=== PATIENT | female | born 1985 | race Caucasian/White ===

== ENCOUNTER 2016-09-07 10:05 | Day surgery (SDC) | payer OTHER ==
[~2016-09-07 10:05] MED LIST: CELECOXIB 100 MG CAPSULE PO ONE
[2016-09-07] MEDS ORDERED: LACTATED RINGERS 1,000 ML IV ONE (10:08)
[2016-09-07] MEDS ORDERED: LIDOCAINE 1%-EPI 1:100000 20 ML MDV SUBQ ONE ×2 (11:22)
[2016-09-07] MEDS ORDERED: PROPOFOL 200 MG/20 ML VIAL IVP ONE (11:28)
[2016-09-07] MEDS ORDERED: MIDAZOLAM 2 MG/2 ML VIAL IVP ONE (11:28)
[2016-09-07] MEDS ORDERED: ONDANSETRON 4 MG/2 ML VIAL IVP ONE (11:28)
[2016-09-07] MEDS ORDERED: LIDOCAINE-MPF 2% 5 ML VIAL IM ONE (11:28)
[2016-09-07] MEDS ORDERED: SUCCINYLCHOLINE 200 MG/10 ML VIAL IVP ONE (11:28)
[2016-09-07] MEDS ORDERED: fentaNYL 100 MCG/2 ML VIAL IVP ONE (11:28)
[2016-09-07] MEDS ORDERED: KETOROLAC 15 MG/ML VIAL ONE ×2 (12:10→12:11)
[2016-09-07] MEDS ORDERED: oxyCODONE 5 MG TABLET ONE (12:36)
== END 2016-09-07 10:06 | disposition home or self-care (01) ==
PROC: 0UB74ZZ Excision of Bilateral Fallopian Tubes, Percutaneous Endoscopic Approach (ICD-10-PCS; principal; 2016-09-07 11:15)
DX: Z30.2 Encounter for sterilization (principal); F31.9 Bipolar disorder, unspecified; E66.01 Morbid (severe) obesity due to excess calories; Z68.43 Body mass index [BMI] 50.0-59.9, adult
CPT/HCPCS: 58661; 81025; A9270; J7120

== ENCOUNTER 2017-04-03 14:19 | Outpatient (CLI) | payer OTHER | END 2017-04-03 14:20 | disposition home or self-care (01) | LOC: SC 14:19 | PROVIDERS: ATTEND Internal Medicine Pulmonary Disease | DX: R06.83 Snoring (principal); R06.81 Apnea, not elsewhere classified; G47.10 Hypersomnia, unspecified; G31.84 Mild cognitive impairment of uncertain or unknown etiology; F41.9 Anxiety disorder, unspecified; F32.9 Major depressive disorder, single episode, unspecified | CPT/HCPCS: 99203; 99212 ==

== ENCOUNTER 2017-05-11 21:58 | Outpatient (CLI) | payer OTHER | END 2017-05-11 21:59 | disposition home or self-care (01) | LOC: SC 21:58 | PROVIDERS: ATTEND Internal Medicine Pulmonary Disease | DX: G47.33 Obstructive sleep apnea (adult) (pediatric) (principal); Z68.42 Body mass index [BMI] 45.0-49.9, adult | CPT/HCPCS: 95810 ==

== ENCOUNTER 2017-06-01 11:21 | Outpatient (CLI) | payer OTHER | END 2017-06-01 11:22 | disposition home or self-care (01) | LOC: SC 11:21 | PROVIDERS: ATTEND Specialist | DX: G47.33 Obstructive sleep apnea (adult) (pediatric) (principal) | CPT/HCPCS: 99212; 99214 ==

== ENCOUNTER 2017-06-20 14:15 | Outpatient (CLI) | payer OTHER ==
[2017-06-20 12:56] LABS: BASOPHILS # (AUTO) 0.1 10^3/uL (0.0-0.1); EOSINOPHILS # (AUTO) 0.1 10^3/uL (0.0-0.7); EOSINOPHILS % (AUTO) 2.6 %; HCT - HEMATOCRIT 40.5 % (37.0-47.0); LYMPHOCYTES # (AUTO) 1.5 10^3/uL (1.5-3.5); LYMPHOCYTES % (AUTO) 26.5 %; MEAN CORPUSCULAR HEMOGLOBIN 31.3 pg (27.0-31.0); MEAN CORPUSCULAR HGB CONC 34.4 g/dL (32.0-36.0); MEAN CORPUSCULAR VOLUME 90.9 fL (81.0-99.0); MEAN PLATELET VOLUME 8.6 fL (7.9-10.8); MONOCYTES # (AUTO) 0.6 10^3/uL (0.0-1.0); MONOCYTES % (AUTO) 10.3 %; NEUTROPHILS # (AUTO) 3.3 10^3/uL (1.5-6.6); NEUTROPHILS % (AUTO) 59.6 %; RED BLOOD COUNT 4.45 10^6/uL (4.20-5.40); RED CELL DISTRIBUTION WIDTH 12.8 % (12.0-15.0); UNCORRECTED WHITE BLOOD COUNT 5.5 x10^3/uL; WHITE BLOOD COUNT 5.5 x10^3/uL (4.8-10.8)
[2017-06-20 13:20] LABS: ALBUMIN/GLOBULIN RATIO 1.6 (1.0-2.2); BILIRUBIN,TOTAL 0.6 mg/dL (0.2-1.0); BUN - BLOOD UREA NITROGEN 15 mg/dL (6-20); CALCIUM 8.5 mg/dL (8.5-10.3); CARBON DIOXIDE - CO2 27 mmol/L (21-32); CHLORIDE 105 mmol/L (101-111); CHOL/HDL RATIO 5.2 (<4.4); CHOLESTEROL 177 mg/dL; CREATININE 0.8 mg/dL (0.4-1.0); GFR - MDRD 83 (>89); GLUCOSE 96 mg/dL (70-100); HDL CHOLESTEROL 34 mg/dL; HEMOGLOBIN A1C 0.47 g/dL; LDL/HDL RATIO 3.3 (<4.4); POTASSIUM 3.9 mmol/L (3.5-5.0); SODIUM 137 mmol/L (135-145); TOTAL PROTEIN 6.6 g/dL (6.7-8.2); TRIGLYCERIDES 162 mg/dL; VLDL CHOLESTEROL 32 mg/dL
== END 2017-06-20 14:16 | disposition home or self-care (01) ==
LOC: LAB.WCP 14:15
PROVIDERS: ATTEND Family Medicine
DX: Z00.00 Encounter for general adult medical examination without abnormal findings (principal); F31.9 Bipolar disorder, unspecified; E03.9 Hypothyroidism, unspecified
CPT/HCPCS: 36415; 80053; 80061; 83036; 84443; 85025

== ENCOUNTER 2017-10-13 09:05 | Outpatient (CLI) | payer OTHER | END 2017-10-13 09:06 | disposition home or self-care (01) | LOC: LAB.WCP 09:05 | PROVIDERS: ATTEND Physician Assistant Medical | DX: R10.2 Pelvic and perineal pain (principal) | CPT/HCPCS: 87086 ==

== ENCOUNTER 2017-11-13 19:43 | Outpatient (CLI) | payer OTHER ==
--- NOTE | 2017-11-14 09:43 | Ultrasound Report ---
PELVIC ULTRASOUND: 11/13/2017 CLINICAL INDICATION: Pelvic pain. TECHNIQUE: Transabdominal pelvic ultrasound performed for global evaluation. Transvaginal pelvic ultrasound performed for detailed evaluation. Real-time scanning performed and static images obtained. FINDINGS: The uterus is anteverted, measuring 8.1 x 5.6 x 3.9 cm. Endometrium measures 3 mm. An IUD is noted in the endometrial canal. There is an anterior intramural leiomyoma measuring 2.2 x 1.9 x 1.7 cm. Right ovary measures 3.6 x 2.9 x 1.5 cm and is unremarkable. The left ovary measures 3.2 x 3.2 x 2.0 cm, and demonstrates a 1.8 cm follicle. No free fluid is present. IMPRESSION: NORMAL PELVIC ULTRASOUND. INTRAUTERINE DEVICE IN PLACE. TD: 11/14/2017 09:43 MTDD
== END 2017-11-13 19:44 | disposition home or self-care (01) ==
LOC: DI 19:43
PROVIDERS: ATTEND Physician Assistant Medical
DX: R10.2 Pelvic and perineal pain (principal); Z97.5 Presence of (intrauterine) contraceptive device
CPT/HCPCS: 76830; 76856

== ENCOUNTER → 2018-05-18 | Outpatient (CLI) | payer OTHER ==
[2018-05-18 13:11] LABS: BASOPHILS % (AUTO) 0.6 %; EOSINOPHILS # (AUTO) 0.2 10^3/uL (0.0-0.7); HGB - HEMOGLOBIN 13.8 g/dL (12.0-16.0); LYMPHOCYTES # (AUTO) 1.5 10^3/uL (1.5-3.5); LYMPHOCYTES % (AUTO) 20.5 %; MEAN CORPUSCULAR HEMOGLOBIN 31.5 pg (27.0-31.0); MEAN CORPUSCULAR HGB CONC 34.4 g/dL (32.0-36.0); MEAN CORPUSCULAR VOLUME 91.6 fL (81.0-99.0); MEAN PLATELET VOLUME 8.9 fL (7.9-10.8); MONOCYTES # (AUTO) 0.7 10^3/uL (0.0-1.0); MONOCYTES % (AUTO) 9.8 %; NEUTROPHILS % (AUTO) 67.1 %; PLT - PLATELET COUNT 200 10^3/uL (130-450); RED BLOOD COUNT 4.39 10^6/uL (4.20-5.40); WHITE BLOOD COUNT 7.4 x10^3/uL (4.8-10.8)
[2018-05-18 13:35] LABS: HB2 TOTAL 14.8 g/dL; HEMOGLOBIN A1C 0.47 g/dL; HEMOGLOBIN A1C % 5.1 % (4.6-6.2)
[2018-05-18 13:46] LABS: ALBUMIN/GLOBULIN RATIO 1.7 (1.0-2.2); ALKALINE PHOSPHATASE 46 IU/L (42-121); ALT ALANINE AMINOTRANSFERASE 30 IU/L (10-60); AST ASPARTATE AMINOTRANSFERASE 25 IU/L (10-42); BILIRUBIN,TOTAL 0.6 mg/dL (0.2-1.0); BUN - BLOOD UREA NITROGEN 10 mg/dL (6-20); CALCIUM 8.8 mg/dL (8.5-10.3); CARBON DIOXIDE - CO2 27 mmol/L (21-32); CHLORIDE 105 mmol/L (101-111); CHOL/HDL RATIO 3.9 (<4.4); CHOLESTEROL 140 mg/dL; CREATININE 0.4 mg/dL (0.4-1.0); GFR - MDRD 184 (>89); GLUCOSE 104 mg/dL (70-100); HDL CHOLESTEROL 36 mg/dL; LDL CHOLESTEROL,CALCULATED 74 mg/dL; LDL/HDL RATIO 2.1 (<4.4); SODIUM 138 mmol/L (135-145); TOTAL PROTEIN 6.4 g/dL (6.7-8.2); VLDL CHOLESTEROL 30 mg/dL
== END ==
LOC: LAB.WCP 08:00
PROVIDERS: ATTEND Family Medicine
DX: F31.9 Bipolar disorder, unspecified (principal); E66.01 Morbid (severe) obesity due to excess calories; E03.9 Hypothyroidism, unspecified; Z13.220 Encounter for screening for lipoid disorders
CPT/HCPCS: 36415; 80053; 80061; 83036; 83721; 84443; 85025

== ENCOUNTER 2018-12-27 15:40 | Outpatient (CLI) | payer OTHER ==
--- NOTE | 2018-12-27 16:11 | XRAY Report ---
Reason: COUGH Procedure Date: 12/27/2018 Accession Number: [id number] / [id number] Procedure: WCP - Chest 2 View X-Ray CPT Code: 01895 FULL RESULT: EXAM: CHEST RADIOGRAPHY EXAM DATE: 12/27/2018 03:53 PM. CLINICAL HISTORY: COUGH. COMPARISON: CHEST 2 VIEW PA/LAT 12/30/2015 2:05 PM. TECHNIQUE: 2 views. FINDINGS: Lungs/Pleura: No focal opacities evident. No pleural effusion. No pneumothorax. Normal volumes. Mediastinum: Heart and mediastinal contours are unremarkable. Other: None. IMPRESSION: Normal 2-view chest radiography. RADIA
== END 2018-12-27 15:41 | disposition home or self-care (01) ==
LOC: DI.WCP 15:40
PROVIDERS: ATTEND Family Medicine
DX: R05 Cough (principal)
CPT/HCPCS: 71046

== ENCOUNTER 2019-01-09 08:07 | Emergency (ER) | payer OTHER ==
[2019-01-09] MEDS ORDERED: SODIUM CHLORIDE 0.9% 1,000 ML IV ONE (08:46)
--- NOTE | 2019-01-09 08:51 | ED Physician Documentation ---
PD HPI SYNCOPE - Stated complaint Stated Complaint: SYNCOPE - Chief complaint Chief Complaint: Neuro - History obtained from History obtained from: Patient - History of Present Illness Witnessed: Witnessed Timing - onset: How many hours ago (2) Preceding symptoms: Light headed Associated symptoms: Nausea / vomiting Contributing factors: Unknown Injury occurred: None Similar symptoms before: Diagnosis (neurocardiogenic syncope) - Additional information Additional information: The patient is a 33-year-old female who presents after an episode of near syncope this morning about 2 hours prior to arrival. She felt dizzy prior to the onset of her symptoms and fell onto the couch prior to passing out. She had associated nausea, without vomiting. Nausea has since resolved. She denies headache, chest pain, shortness of breath, numbness or weakness. She noticed her heart rate was variable, between 60 and 112 on her pulse monitor on her watch. She currently feels asymptomatic. She had not yet eaten breakfast but had a small amount of milk prior to the onset of her symptoms. She has recently been on a reduction diet, and reports having lost 50 pounds. She has a prior history of similar episode while in her teens. She was worked up by a specialist at that time and diagnosed with neurocardiogenic syncope. She has been treated with sertraline since that time. Review of Systems Constitutional: reports: Weight Loss (50 pounds over past 2 months---intentional.). denies: Fever, Fatigue Eyes: denies: Decreased vision Ears: denies: Tinnitus/ringing Nose: denies: Congestion Throat: denies: Sore throat Cardiac: denies: Chest pain / pressure Respiratory: denies: Dyspnea, Cough GI: denies: Abdominal Pain, Vomiting, Diarrhea : reports: Control (IUD). denies: Dysuria, Incontinent, Vaginal bleeding Skin: denies: Rash Musculoskeletal: denies: Neck pain, Back pain Neurologic: reports: Near syncope. denies: Focal weakness, Numbness, Altered mental status, Headache PD PAST MEDICAL HISTORY - Past Medical History Cardiovascular: None Respiratory: None Endocrine/Autoimmune: HyPOthyroidism GI: None : None HEENT: None Psych: Anxiety, Bipolar disorder Musculoskeletal: None Derm: None - Past Surgical History Past Surgical History: Yes General: Cholecystectomy HEENT: Tonsil/Adenoidectomy - Present Medications Home Medications: Ambulatory Orders Medication Instructions Recorded Confirmed Levothyroxine [Synthroid] 88 mcg PO ONCEDAILY 08/12/13 01/09/19 Sertraline HCl [Zoloft] 150 mg PO DAILY 08/12/13 01/09/19 diazePAM [Valium] 5 mg PO PRN PRN 09/06/16 01/09/19 lamoTRIgine [Lamictal Xr] 100 mg PO DAILY 09/06/16 01/09/19 - Allergies Allergies/Adverse Reactions: Allergies Allergy/AdvReac Type Severity Reaction Status Date / Time hydrocodone bitartrate * AdvReac Intermediate Hallucinati Verified 01/09/19 08:25 [From Vicodin] ons - Social History Does the pt smoke?: No Smoking Status: Never smoker Does the pt drink ETOH?: No Does the pt have substance abuse?: No - Immunizations Immunizations are current?: No Immunizations: TDAP >10years/unknown PD ED PE NORMAL - Vitals Vital signs reviewed: Yes (normal) - General General: Alert and oriented X 3, Well developed/nourished - HEENT HEENT: Atraumatic, PERRL, EOMI, Ears normal, Moist mucous membranes, Pharynx benign - Neck Neck: Supple, no meningeal sign, No adenopathy - Cardiac Cardiac: RRR, No murmur - Respiratory Respiratory: No respiratory distress, Clear bilaterally - Abdomen Abdomen: Soft, Non tender - Back Back: No CVA TTP - Derm Derm: No rash - Extremities Extremities: No edema, No calf tenderness / cord - Neuro Neuro: Alert and oriented X 3, No motor deficit, No sensory deficit, Normal speech Results - Vitals Vitals: Vital Signs - 24 hr 01/09/19 01/09/19 01/09/19 08:22 10:29 11:36 Temperature 36.8 C 36.8 C Heart Rate 71 63 66 Respiratory 16 22 21 Rate Blood Pressure 118/78 119/87 H 129/88 H O2 Saturation 98 100 100 Oxygen O2 Source Room air - EKG (time done) 08:15 Rate: Rate (enter#) (68) Rhythm: NSR [place]: Normal Intervals: Normal [place] QRS: Normal Ischemia: Normal ST segments Computer interpretation: Agree with computer - Labs Labs: Laboratory Tests 01/09/19 01/09/19 01/09/19 08:28 08:53 08:53 WBC 5.9 RBC 4.86 Hgb 14.6 Hct 44.8 MCV 92.2 MCH 30.0 MCHC 32.6 RDW 12.7 Plt Count 211 MPV 11.1 H Neut # (Auto) 3.8 Lymph # (Auto) 1.4 L [place] # (Auto) 0.6 Eos # (Auto) 0.1 Baso # (Auto) 0.1 Absolute Nucleated RBC 0.00 Nucleated RBC % 0.0 Sodium 138 Potassium 4.1 Chloride 101 Carbon Dioxide 26 Anion Gap 11.0 BUN 9 Creatinine 0.9 Estimated GFR (MDRD) 72 L Glucose 100 POC Whole Bld Glucose 101 H Calcium 9.2 Total Bilirubin 0.9 AST 24 ALT 32 Alkaline Phosphatase 44 Total Protein 6.6 L Albumin 4.0 Globulin 2.6 Albumin/Globulin Ratio 1.5 Lipase 27 Ur Specific [place] Urine HCG, Qual 01/09/19 10:15 WBC RBC Hgb Hct MCV MCH MCHC RDW Plt Count MPV Neut # (Auto) Lymph # (Auto) [place] # (Auto) Eos # (Auto) Baso # (Auto) Absolute Nucleated RBC Nucleated RBC % Sodium Potassium Chloride Carbon Dioxide Anion Gap BUN Creatinine Estimated GFR (MDRD) Glucose POC Whole Bld Glucose Calcium Total Bilirubin AST ALT Alkaline Phosphatase Total Protein Albumin Globulin Albumin/Globulin Ratio Lipase Ur Specific [place] 1.010 Urine HCG, Qual NEGATIVE PD MEDICAL DECISION MAKING - ED course Complexity details: reviewed old records, reviewed results, re-evaluated patient, considered differential, d/w patient, d/w family ED course: The underlying cause for the patient's near syncopal episode is unclear at this time. There is no evidence of cardiac rhythm disturbance, hypoglycemia, infectious process, or seizure based on history and physical examination, lab results, and EKG. Treatment in the emergency department included administration of normal saline 1 L IV. The patient remained asymptomatic while in the emergency department, and demonstrated ability to ambulate without lightheadedness. I discussed with her and her male accounts payable coordinator the results of the work-up, outpatient follow-up, as well as potentially worrisome signs or symptoms that should prompt reevaluation in the emergency department. Departure - Departure Disposition: 01 Home, Self Care Clinical Impression: Postural dizziness with near syncope Condition: Stable Health Concerns: Passing out. Plan of Treatment: oral fluids Care Goals: Avoidance of passing out. Assessment: see above. Instructions: ED Near Syncope Unkn Follow-Up: Chris Baker MD [Provider Admit Priv/Credential] - Comments: Drink plenty of fluids. Follow-up with your primary physician within 1 to 2 weeks. Call to schedule appointment. Return to the emergency department if you develop recurrent lightheadedness or otherwise worsening symptoms. Discharge Date/Time: 01/09/19 11:39
[2019-01-09 09:14] LABS: BASOPHILS # (AUTO) 0.1 10^3/uL (0.0-0.1); BASOPHILS % (AUTO) 0.8 %; EOSINOPHILS # (AUTO) 0.1 10^3/uL (0.0-0.7); HGB - HEMOGLOBIN 14.6 g/dL (12.0-16.0); LYMPHOCYTES # (AUTO) 1.4 10^3/uL (1.5-3.5); LYMPHOCYTES % (AUTO) 22.8 %; MEAN CORPUSCULAR HGB CONC 32.6 g/dL (32.0-36.0); MEAN CORPUSCULAR VOLUME 92.2 fL (81.0-99.0); MEAN PLATELET VOLUME 11.1 fL (7.9-10.8); MONOCYTES # (AUTO) 0.6 10^3/uL (0.0-1.0); MONOCYTES % (AUTO) 9.6 %; NEUTROPHILS # (AUTO) 3.8 10^3/uL (1.5-6.6); NEUTROPHILS % (AUTO) 64.5 %; PLT - PLATELET COUNT 211 10^3/uL (130-450); RED BLOOD COUNT 4.86 10^6/uL (4.20-5.40); RED CELL DISTRIBUTION WIDTH 12.7 % (12.0-15.0); WHITE BLOOD COUNT 5.9 x10^3/uL (4.8-10.8)
[2019-01-09 09:42] LABS: ALBUMIN/GLOBULIN RATIO 1.5 (1.0-2.2); BILIRUBIN,TOTAL 0.9 mg/dL (0.2-1.0); CALCIUM 9.2 mg/dL (8.5-10.3); CREATININE 0.9 mg/dL (0.4-1.0); TOTAL PROTEIN 6.6 g/dL (6.7-8.2)
[2019-01-09 11:04] LABS: HCG UR QUAL NEGATIVE
[2019-01-09 11:39] VITALS: BP 129/88
== END 2019-01-09 11:39 | disposition home or self-care (01) ==
LOC: ED 08:07
DX: R55 Syncope and collapse (principal); R42 Dizziness and giddiness
CPT/HCPCS: 36415; 80053; 81025; 83690; 85025; 93005; 96360; 99283

== ENCOUNTER 2019-06-24 14:53 | Emergency (ER) | payer OTHER ==
--- NOTE | 2019-06-24 15:28 | ED Physician Documentation ---
PD HPI LOWER EXT INJURY - Stated complaint Stated Complaint: RT ANKLE INJURY - Chief complaint Chief Complaint: Ext Problem - History obtained from History obtained from: Patient - History of Present Illness PD HPI LOW EXT INJURY LOCATION: Right, Ankle Type of injury: Twist Where injury occurred: Home Timing - onset: How many days ago (8) Timing - duration: Days (8) Timing - details: Abrupt onset, Still present Severity Comments: moderate, right lateral ankle Improved by: Rest Worsened by: Moving, Palpating, Other (weight bearing) Associated symptoms: Swelling. No: Weakness, Numbness, Tingling, Discolored Contributing factors: No: Anticoagulated, Prior ortho surgery, Prosthetic joint, Work related Similar symptoms before: Diagnosis (has hx of multiple prior ankle sprains) Recently seen: Not recently seen - Treatment prior to arrival Treatment prior to arrival: ibuprofen once Review of Systems Ten Systems: 10 systems reviewed and negative Constitutional: denies: Fever Skin: reports: Reviewed and negative Musculoskeletal: reports: Extremity pain, Joint pain Neurologic: denies: Generalized weakness, Focal weakness, Numbness Endocrine: reports: Reviewed and negative Immunocompromised: reports: Reviewed and negative PD PAST MEDICAL HISTORY - Past Medical History Past Medical History: Yes Cardiovascular: None Respiratory: None Endocrine/Autoimmune: HyPOthyroidism GI: None : None HEENT: None Psych: Anxiety, Bipolar disorder Musculoskeletal: None Derm: None - Past Surgical History Past Surgical History: Yes General: Cholecystectomy HEENT: Tonsil/Adenoidectomy - Present Medications Home Medications: Ambulatory Orders Medication Instructions Recorded Confirmed Levothyroxine [Synthroid] 88 mcg PO ONCEDAILY 08/12/13 01/09/19 Sertraline HCl [Zoloft] 150 mg PO DAILY 08/12/13 01/09/19 diazePAM [Valium] 5 mg PO PRN PRN 09/06/16 01/09/19 lamoTRIgine [Lamictal Xr] 100 mg PO DAILY 09/06/16 01/09/19 - Allergies Allergies/Adverse Reactions: Allergies Allergy/AdvReac Type Severity Reaction Status Date / Time hydrocodone bitartrate * AdvReac Intermediate Hallucinati Verified 01/09/19 08:25 [From Vicodin] ons - Social History Does the pt smoke?: No Smoking Status: Never smoker Does the pt drink ETOH?: No Does the pt have substance abuse?: No - Immunizations Immunizations are current?: No Immunizations: TDAP >10years/unknown PD ED PE NORMAL - Vitals Vital signs reviewed: Yes - General General: Alert and oriented X 3, No acute distress, Well developed/nourished - HEENT HEENT: Atraumatic, Pharynx benign - Neck Neck: Supple, no meningeal sign - Cardiac Cardiac: RRR - Respiratory Respiratory: No respiratory distress - Abdomen Abdomen: Non distended - Female Female : Deferred - Rectal Rectal: Deferred - Derm Derm: Normal color, Warm and dry, No rash - Extremities Extremities: No deformity, No calf tenderness / cord - Neuro Neuro: Alert and oriented X 3, No motor deficit, No sensory deficit, Normal speech Eye Opening: Spontaneous Motor: Obeys Commands Verbal: Oriented GCS Score: 15 - Psych Psych: Normal mood, Normal affect PD ED PE EXPANDED - Extremities Extremities: Swelling (very mild R lateral ankle swelling. no foot tendernes or swelling ), Motor intact, Sensory intact, Vascular intact, Tendon intact, Other (No medial or lateral malleoli tenderness. ). No: Deformity, Limited ROM, Bruising, Abrasion, Laceration Results - Vitals Vitals: Vital Signs - 24 hr 06/24/19 06/24/19 14:57 16:22 Temperature 36.2 C L 36.7 C Heart Rate 93 77 Respiratory 18 16 Rate Blood Pressure 129/92 H 124/82 H O2 Saturation 97 100 Oxygen O2 Source Room air - Rads (name of study) R ankle xray Radiology: Final report received, EMP read contemporaneously, See rad report (possible R ankle ossicle from an old ankle injury ) PD MEDICAL DECISION MAKING - ED course Complexity details: reviewed results, re-evaluated patient, considered differential, d/w patient ED course: ddx- ankle sprain, ankle fracture, ankle contusion 34 y/o F with hx and exam as documented, twisted her ankle 8 days ago, reports some persistent lateral inferior R ankle pain, she is bearing weight with some pain but has been walking on it for 8 days, RLE is neurovascularly intact. Her xray shows a possible old injury, this may be due to this injury or a prior injury but regardless is not operative and pt can continue to bear weight. Continue RICE, supportive care and outpt f/u as needed. Given an my wrap for comfort here in the ED. Departure - Departure Disposition: 01 Home, Self Care Clinical Impression: Ankle sprain Qualifiers: Encounter type: initial encounter Involved ligament of ankle: tibiofibular ligament Laterality: right Qualified Code(s): S93.431A - Sprain of tibiofibular ligament of right ankle, initial encounter Condition: Stable Record reviewed to determine appropriate education?: Yes Instructions: ED Sprain Ankle Follow-Up: Chris Baker, [Primary Care Provider] - As Needed Comments: Your xrays today are negative for acute fracture. There is a tiny ossicle near your lateral ankle that could be from an old fracture. This is too small to need intervention. You can use an my wrap as needed for pain and support and ice the ankle for 20 minutes at a time as much as you can for the next week. Use ibuprofen 600mg every 8 hours for pain and swelling for 5-7 days. Discharge Date/Time: 06/24/19 16:23
--- NOTE | 2019-06-24 15:32 | XRAY Report ---
Reason: injury, worsening pain Procedure Date: 06/24/2019 Accession Number: [id number] / [id number] Procedure: XR - Ankle 3 View RT CPT Code: Final Report FULL RESULT: EXAM: RIGHT ANKLE RADIOGRAPHY EXAM DATE: 06/24/2019 03:04 PM. CLINICAL HISTORY: Injury, worsening pain. COMPARISON: XR ANKLE COMPLETE MIN 3 VIEW 01/21/2009 6:57 PM. TECHNIQUE: 3 views. FINDINGS: Bones: Tiny ossicle projects inferior to the lateral malleolus of unclear etiology, but could reflect sequela of age indeterminate avulsion fracture. No other fracture lines are evident. Joints: Normal alignment of the ankle mortise. No subluxation. Soft Tissues: No asymmetric soft tissue swelling. IMPRESSION: 1. No acute fracture line nor subluxation. 2. Tiny ossicle projecting inferior to the lateral malleolus could reflect sequelae of age indeterminate trauma. RADIA
[2019-06-24 16:23] VITALS: BP 124/82
== END 2019-06-24 16:23 | disposition home or self-care (01) ==
LOC: ED 14:53
DX: S93.431A Sprain of tibiofibular ligament of right ankle, initial encounter (principal); X50.1XXA Overexertion from prolonged static or awkward postures, initial encounter; Y92.009 Unspecified place in unspecified non-institutional (private) residence as the place of occurrence of the external cause
CPT/HCPCS: 99282; 99283

== ENCOUNTER 2019-10-03 13:30 | Outpatient (CLI) | payer OTHER | END 2019-10-03 13:31 | disposition home or self-care (01) | LOC: COV 13:30 | PROVIDERS: ATTEND Family Medicine | DX: R05 Cough (principal); R50.9 Fever, unspecified | CPT/HCPCS: 81599 ==

== ENCOUNTER 2019-12-06 15:23 | Outpatient (CLI) | payer OTHER ==
--- NOTE | 2019-12-06 21:24 | XRAY Report ---
Reason: SCIATICA, LEFT, SOMATIC DYSFUNCTION, LUMBAR Procedure Date: 12/06/2019 Accession Number: [id number] / [id number] Procedure: XR - Lumbar Spine 2 View CPT Code: Final Report FULL RESULT: EXAM: LUMBOSACRAL SPINE RADIOGRAPHY EXAM DATE: 12/06/2019 03:43 PM. CLINICAL HISTORY: Left-sided sciatica. COMPARISONS: None. TECHNIQUE: 2 views. FINDINGS: Alignment: There is minimal scoliosis present. Bones: Five [id number] lumbar vertebral bodies are present. No fractures or bone lesions. Disks: Normal. Disk heights are maintained. Facets: Minimal osteoarthritic changes seen. Sacroiliac Joints: Unremarkable. Soft Tissues: Post cholecystectomy clips seen in the right upper quadrant. T-shaped IUD seen projecting over the pelvis. The visualized bowel gas pattern is normal. IMPRESSION: 1. Minimal facet osteoarthritic changes, otherwise unremarkable exam. RADIA
== END 2019-12-06 15:24 | disposition home or self-care (01) ==
LOC: DI 15:23
PROVIDERS: ATTEND Family Medicine
DX: M47.816 Spondylosis without myelopathy or radiculopathy, lumbar region (principal)
CPT/HCPCS: 72100

== ENCOUNTER 2020-03-04 09:40 | Outpatient (CLI) | payer BC | END 2020-03-04 23:59 | disposition home or self-care (01) | LOC: COV 09:40 | PROVIDERS: ATTEND Family Medicine | DX: R11.2 Nausea with vomiting, unspecified (principal); Z20.828 Contact with and (suspected) exposure to other viral communicable diseases ==

== ENCOUNTER 2020-07-23 08:09 | Outpatient (CLI) | payer BC ==
[2020-07-23 11:47] LABS: BASOPHILS # (AUTO) 0.1 10^3/uL (0.0-0.1); BASOPHILS % (AUTO) 0.8 %; EOSINOPHILS # (AUTO) 0.1 10^3/uL (0.0-0.7); EOSINOPHILS % (AUTO) 2.1 %; HCT - HEMATOCRIT 42.7 % (37.0-47.0); HGB - HEMOGLOBIN 14.2 g/dL (12.0-16.0); LYMPHOCYTES # (AUTO) 1.6 10^3/uL (1.5-3.5); LYMPHOCYTES % (AUTO) 25.8 %; MEAN CORPUSCULAR HEMOGLOBIN 30.7 pg (27.0-31.0); MEAN CORPUSCULAR HGB CONC 33.3 g/dL (32.0-36.0); MEAN CORPUSCULAR VOLUME 92.4 fL (81.0-99.0); MEAN PLATELET VOLUME 10.7 fL (7.9-10.8); MONOCYTES # (AUTO) 0.8 10^3/uL (0.0-1.0); MONOCYTES % (AUTO) 11.9 %; NEUTROPHILS # (AUTO) 3.7 10^3/uL (1.5-6.6); NEUTROPHILS % (AUTO) 59.1 %; PLT - PLATELET COUNT 223 10^3/uL (130-450); RED BLOOD COUNT 4.62 10^6/uL (4.20-5.40); RED CELL DISTRIBUTION WIDTH 12.6 % (12.0-15.0); WHITE BLOOD COUNT 6.3 x10^3/uL (4.8-10.8)
[2020-07-23 12:00] LABS: ESTIMATED AVERAGE GLUCOSE 97 mg/dL (70-100)
[2020-07-23 12:18] LABS: ALBUMIN 4.2 g/dL (3.2-5.5); ALBUMIN/GLOBULIN RATIO 1.8 (1.0-2.2); ALKALINE PHOSPHATASE 54 IU/L (42-121); ALT ALANINE AMINOTRANSFERASE 28 IU/L (10-60); AST ASPARTATE AMINOTRANSFERASE 21 IU/L (10-42); BILIRUBIN,TOTAL 0.7 mg/dL (0.2-1.0); BUN - BLOOD UREA NITROGEN 12 mg/dL (6-20); CARBON DIOXIDE - CO2 24 mmol/L (21-32); CHLORIDE 102 mmol/L (101-111); CHOL/HDL RATIO 5.6 (<4.4); CHOLESTEROL 212 mg/dL; CREATININE 0.9 mg/dL (0.4-1.0); GFR - MDRD 71 (>89); GLUCOSE 100 mg/dL (70-100); HDL CHOLESTEROL 38 mg/dL; LDL CHOLESTEROL,CALCULATED 140 mg/dL; LDL/HDL RATIO 3.7 (<4.4); POTASSIUM 4.6 mmol/L (3.5-5.0); SODIUM 139 mmol/L (135-145); TOTAL PROTEIN 6.5 g/dL (6.7-8.2); TRIGLYCERIDES 172 mg/dL; VLDL CHOLESTEROL 34 mg/dL
[2020-07-23 12:26] LABS: THYROID STIMULATING HORMONE 1.38 uIU/mL (0.34-5.60)
== END 2020-07-23 23:59 | disposition home or self-care (01) ==
LOC: LAB.WCP 08:09
PROVIDERS: ATTEND Family Medicine
DX: Z00.00 Encounter for general adult medical examination without abnormal findings (principal); E78.5 Hyperlipidemia, unspecified; E03.9 Hypothyroidism, unspecified; F31.9 Bipolar disorder, unspecified; E66.01 Morbid (severe) obesity due to excess calories; M85.80 Other specified disorders of bone density and structure, unspecified site; Z13.220 Encounter for screening for lipoid disorders
CPT/HCPCS: 36415; 80053; 80061; 80175; 83036; 83721; 84443; 85025

== ENCOUNTER 2020-10-10 10:57 | Outpatient (CLI) | payer BC ==
--- NOTE | 2020-10-10 11:43 | XRAY Report ---
PROCEDURE: Ankle 2 View LT INDICATIONS: LEFT ANKLE SPRAIN TECHNIQUE: 2 views of the ankle were acquired. COMPARISON: None FINDINGS: Bones: No fractures or dislocations. Ankle mortise is normally aligned. No suspicious bony lesions . The talar dome demonstrates an unremarkable appearance. Soft tissues: Prominent soft tissue swelling is seen laterally. IMPRESSION: Soft tissue swelling is seen. No findings of fracture are seen. However, if there is point tenderness (or other clinical concern fo r a fracture not seen on these plain films) then please consider a short-term follow-up plain film se zan or CT for further evaluation. Reviewed by: Austin Streeter MD on 10/10/2020 10:42 AM LATISHA Approved by: Austin Streeter MD on 10/10/2020 10:42 AM LATISHA Station ID: [id number]
== END 2020-10-10 23:59 | disposition home or self-care (01) ==
LOC: DI.N 10:57
PROVIDERS: ATTEND Nurse Practitioner
DX: M79.89 Other specified soft tissue disorders (principal)

== ENCOUNTER 2020-10-14 16:20 | Outpatient (CLI) | payer BC ==
--- NOTE | 2020-10-15 17:04 | XRAY Report ---
PROCEDURE: Foot 3 View LT INDICATIONS: L FOOT PX TECHNIQUE: 3 views of the foot were acquired. COMPARISON: Ankle x-ray 10/10/2020 FINDINGS: Bones: No fractures or dislocations. No suspicious bony lesions. Soft tissues: Prominent ankle edema particularly at the lateral malleolus. Achilles tendon appears no rmal. IMPRESSION: No visualized acute fracture or dislocation. However, occult injury cannot be excluded. Recommend mir rt interval imaging follow-up in 7-10 days as clinically indicated for additional evaluation. Reviewed by: Massiel Rasmussen MD on 10/15/2020 5:02 PM PDT Approved by: Massiel Rasmussen MD on 10/15/2020 5:02 PM PDT Station ID: [id number]
== END 2020-10-14 16:21 | disposition home or self-care (01) ==
LOC: DI.N 16:20
PROVIDERS: ATTEND Family Medicine
DX: M79.672 Pain in left foot (principal)

== ENCOUNTER 2020-12-24 17:32 | Outpatient (CLI) | payer BC ==
--- NOTE | 2020-12-24 08:14 | XRAY Report ---
PROCEDURE: Ankle 3 View LT INDICATIONS: SPRAIN OF LEFT ANKLE TECHNIQUE: 3 views of the left ankle. COMPARISON: Normal FINDINGS: Bones: No fractures or dislocations. Ankle mortise is normally aligned. No suspicious bony lesions . The right ankle has calcifications distal to the fibular tip, likely related to prior trauma. The left ankle has no evidence of prior trauma. Soft tissues: No tibiotalar joint effusion. Achilles tendon appears normal. IMPRESSION: Normal left ankle Reviewed by: Antonio Celis on 12/24/2020 8:13 AM PDT Approved by: Antonio Celis on 12/24/2020 8:13 AM PDT Station ID: [id number]
== END 2020-12-24 23:59 | disposition home or self-care (01) ==
LOC: DI.N 17:32
PROVIDERS: ATTEND Physician Assistant
DX: S93.402A Sprain of unspecified ligament of left ankle, initial encounter (principal)

== ENCOUNTER 2022-09-21 14:30 | Outpatient (CLI) | payer OTHER, MEDICAID ==
[2022-09-21 17:34] LABS: BASOPHILS % (AUTO) 0.3 %; EOSINOPHILS % (AUTO) 0.1 %; HCT - HEMATOCRIT 41.4 % (37.0-47.0); HGB - HEMOGLOBIN 13.9 g/dL (12.0-16.0); LYMPHOCYTES # (AUTO) 2.1 10^3/uL (1.5-3.5); LYMPHOCYTES % (AUTO) 28.2 %; MEAN CORPUSCULAR HGB CONC 33.6 g/dL (32.0-36.0); MEAN CORPUSCULAR VOLUME 92.2 fL (81.0-99.0); MEAN PLATELET VOLUME 10.1 fL (7.9-10.8); MONOCYTES # (AUTO) 0.8 10^3/uL (0.0-1.0); MONOCYTES % (AUTO) 10.5 %; NEUTROPHILS # (AUTO) 4.4 10^3/uL (1.5-6.6); NEUTROPHILS % (AUTO) 60.2 %; PLT - PLATELET COUNT 303 10^3/uL (130-450); RED BLOOD COUNT 4.49 10^6/uL (4.20-5.40); RED CELL DISTRIBUTION WIDTH 12.5 % (12.0-15.0); WHITE BLOOD COUNT 7.3 x10^3/uL (4.8-10.8)
[2022-09-21 18:01] LABS: CALCIUM 8.9 mg/dL (8.5-10.3); CREATININE 0.9 mg/dL (0.4-1.0); POTASSIUM 4.2 mmol/L (3.5-5.0)
== END 2022-09-21 14:45 | disposition home or self-care (01) ==
LOC: LAB.N 14:30
PROVIDERS: ATTEND Physician Assistant
DX: R22.43 Localized swelling, mass and lump, lower limb, bilateral (principal)
CPT/HCPCS: 36415; 80048; 84443; 85025

== ENCOUNTER 2022-09-28 19:55 | Emergency (ER) | payer OTHER, MEDICAID ==
[2022-09-28 22:43] LABS: BILIRUBIN,URINE NEGATIVE (NEGATIVE); GLUCOSE, URINE (UA) NEGATIVE (NEGATIVE); KETONES,URINE (UA) NEGATIVE (NEGATIVE); LEUKOCYTE ESTERASE, URINE NEGATIVE (NEGATIVE); NITRITE,URINE NEGATIVE (NEGATIVE); OCCULT BLOOD,URINE NEGATIVE (NEGATIVE); PROTEIN,URINE NEGATIVE (NEGATIVE); UROBILINOGEN,URINE 0.2 (NORMAL) E.U./dL (NORMAL)
[2022-09-28 22:44] LABS: CLARITY,URINE CLEAR (CLEAR)
[2022-09-28 22:57] LABS: BASOPHILS % (AUTO) 0.6 %; EOSINOPHILS % (AUTO) 0.1 %; HCT - HEMATOCRIT 43.3 % (37.0-47.0); HGB - HEMOGLOBIN 14.3 g/dL (12.0-16.0); LYMPHOCYTES # (AUTO) 2.3 10^3/uL (1.5-3.5); LYMPHOCYTES % (AUTO) 32.4 %; MEAN CORPUSCULAR HEMOGLOBIN 30.8 pg (27.0-31.0); MEAN CORPUSCULAR VOLUME 93.1 fL (81.0-99.0); MEAN PLATELET VOLUME 9.8 fL (7.9-10.8); MONOCYTES # (AUTO) 0.6 10^3/uL (0.0-1.0); NEUTROPHILS # (AUTO) 4.1 10^3/uL (1.5-6.6); NEUTROPHILS % (AUTO) 57.3 %; PLT - PLATELET COUNT 255 10^3/uL (130-450); RED BLOOD COUNT 4.65 10^6/uL (4.20-5.40); RED CELL DISTRIBUTION WIDTH 12.7 % (12.0-15.0); WHITE BLOOD COUNT 7.2 x10^3/uL (4.8-10.8)
[2022-09-28 23:09] LABS: ALBUMIN 3.8 g/dL (3.2-5.5); ALBUMIN/GLOBULIN RATIO 1.3 (1.0-2.2); ALKALINE PHOSPHATASE 69 IU/L (42-121); ALT ALANINE AMINOTRANSFERASE 27 IU/L (10-60); AST ASPARTATE AMINOTRANSFERASE 24 IU/L (10-42); BILIRUBIN,TOTAL 0.6 mg/dL (0.2-1.0); BUN - BLOOD UREA NITROGEN 13 mg/dL (6-20); CALCIUM 8.6 mg/dL (8.5-10.3); CARBON DIOXIDE - CO2 29 mmol/L (21-32); CHLORIDE 102 mmol/L (101-111); CREATININE 0.9 mg/dL (0.4-1.0); GFR - MDRD 70 (>89); GLUCOSE 94 mg/dL (70-100); IONIZED CALCIUM IF INDICATED NO; POTASSIUM 4.1 mmol/L (3.5-5.0); SODIUM 138 mmol/L (135-145); TOTAL PROTEIN 6.7 g/dL (6.7-8.2)
--- NOTE | 2022-09-28 23:40 | ED Physician Documentation ---
History of Present Illness - Stated complaint Stated Complaint: BODY PX/SOA - Chief complaint Chief Complaint: Ext Problem - Additonal information Additional information: Patient 37-year-old female presenting to the emergency department with chief complaint of edema. Reports diffuse edema in the lower and upper extremities. Reports its been worse lately and that she has not been able to tolerate her compression stockings because of pain. States symptoms of been ongoing for several months. Has been seen by primary care but decided to come to the emergency department this evening to "get checked out".Denies chest pain or shortness of breath. Review of Systems Constitutional: denies: Fever Eyes: denies: Loss of vision Ears: denies: Loss of hearing Nose: denies: Rhinorrhea / runny nose Throat: denies: Dental pain / toothache Cardiac: denies: Chest pain / pressure Respiratory: denies: Dyspnea GI: denies: Abdominal Pain : denies: Dysuria Skin: denies: Rash Musculoskeletal: reports: Extremity swelling. denies: Neck pain PD PAST MEDICAL HISTORY - Past Medical History Cardiovascular: None Respiratory: None Endocrine/Autoimmune: HyPOthyroidism GI: None : None HEENT: None Psych: Bipolar disorder, Anxiety Musculoskeletal: None Derm: None - Past Surgical History Past Surgical History: Yes General: Cholecystectomy HEENT: Tonsil/Adenoidectomy - Present Medications Home Medications: Ambulatory Orders Medication Instructions Recorded Confirmed Levothyroxine [Synthroid] 88 mcg PO ONCEDAILY 08/12/13 01/09/19 Sertraline HCl [Zoloft] 150 mg PO DAILY 08/12/13 01/09/19 diazePAM [Valium] 5 mg PO PRN PRN 09/06/16 01/09/19 lamoTRIgine [Lamictal Xr] 100 mg PO DAILY 09/06/16 01/09/19 Furosemide [Lasix] 20 mg PO DAILY #3 tablet 09/28/22 - Allergies Allergies/Adverse Reactions: Allergies Allergy/AdvReac Type Severity Reaction Status Date / Time hydrocodone bitartrate * AdvReac Intermediate Hallucinati Verified 09/28/22 20:29 [From Vicodin] ons - Social History Does the pt smoke?: No Smoking Status: Never smoker Does the pt drink ETOH?: No Does the pt have substance abuse?: No - Immunizations Immunizations are current?: No Immunizations: TDAP >10years/unknown PD ED PE NORMAL - Vitals Vital signs reviewed: Yes - General General: Alert and oriented X 3, No acute distress, Other (Obese) - HEENT HEENT: Atraumatic, PERRL, EOMI - Neck Neck: Supple, no meningeal sign, No bony TTP - Cardiac Cardiac: RRR, No gallop - Respiratory Respiratory: No respiratory distress, Clear bilaterally - Abdomen Abdomen: Normal bowel sounds - Female Female : Deferred - Derm Derm: Normal color - Extremities Extremities: No deformity, Other (+1 pitting edema bilaterally) - Neuro Neuro: Alert and oriented X 3, childcare administrator 2-12 intact, No motor deficit, No sensory deficit, Normal speech - Psych Psych: Normal mood Results - Vitals Vitals: Vital Signs - 24 hr 09/28/22 09/28/22 20:29 22:35 Temperature 36.5 C Heart Rate 79 74 Respiratory 18 16 Rate Blood Pressure 149/90 H 109/58 L O2 Saturation 100 100 Oxygen O2 Source Room air - Labs Labs: Laboratory Tests 09/28/22 09/28/22 09/28/22 22:35 22:52 22:52 WBC 7.2 RBC 4.65 Hgb 14.3 Hct 43.3 MCV 93.1 MCH 30.8 MCHC 33.0 RDW 12.7 Plt Count 255 MPV 9.8 Neut # (Auto) 4.1 Lymph # (Auto) 2.3 [place] # (Auto) 0.6 Eos # (Auto) 0.0 Baso # (Auto) 0.0 Absolute Nucleated RBC 0.00 Nucleated RBC % 0.0 Sodium 138 Potassium 4.1 Chloride 102 Carbon Dioxide 29 Anion Gap 7.0 BUN 13 Creatinine 0.9 Estimated GFR (MDRD) 70 L Glucose 94 Calcium 8.6 Ionized Calcium NO Total Bilirubin 0.6 AST 24 ALT 27 Alkaline Phosphatase 69 B-Natriuretic Peptide Total Protein 6.7 Albumin 3.8 Globulin 2.9 Albumin/Globulin Ratio 1.3 Urine Color YELLOW Urine Clarity CLEAR Urine pH 6.0 Ur Specific [place] 1.025 Urine Protein NEGATIVE Urine Glucose (UA) NEGATIVE Urine Ketones NEGATIVE Urine Occult Blood NEGATIVE Urine Nitrite NEGATIVE Urine Bilirubin NEGATIVE Urine Urobilinogen 0.2 (NORMAL) Ur Leukocyte Esterase NEGATIVE Ur Microscopic Review NOT INDICATED Urine Culture Comments NOT INDICATED 09/28/22 22:52 WBC RBC Hgb Hct MCV MCH MCHC RDW Plt Count MPV Neut # (Auto) Lymph # (Auto) [place] # (Auto) Eos # (Auto) Baso # (Auto) Absolute Nucleated RBC Nucleated RBC % Sodium Potassium Chloride Carbon Dioxide Anion Gap BUN Creatinine Estimated GFR (MDRD) Glucose Calcium Ionized Calcium Total Bilirubin AST ALT Alkaline Phosphatase B-Natriuretic Peptide 13 Total Protein Albumin Globulin Albumin/Globulin Ratio Urine Color Urine Clarity Urine pH Ur Specific [place] Urine Protein Urine Glucose (UA) Urine Ketones Urine Occult Blood Urine Nitrite Urine Bilirubin Urine Urobilinogen Ur Leukocyte Esterase Ur Microscopic Review Urine Culture Comments PD Medical Decision Making - ED course Complexity details: reviewed results ED course: Patient 37-year-old female presenting to the emergency department with lower extremity edema that she states is worse than baseline. No shortness of breath, chest pain and a negative BNP is highly indicative that this is not secondary to heart failure. She is obese and likely has poor circulation. She did report that her edema is worse at end of day and does seem to be better in the mornings. I did encourage her to continue to use her compression stockings. Again after discussing risks and benefits she would like to trial a small amount of Lasix to see if that helps with her immediate issues. Will prescribe 3 days worth of furosemide for use at home. I will encourage her to increase her intake and potassium rich foods while on furosemide. Will encourage her to continue to follow carefully with primary care. Clear return precautions given. Departure - Departure Disposition: 01 Home, Self Care Clinical Impression: Bilateral lower extremity edema Instructions: ED Edema Legs Bilateral Prescriptions: Furosemide [Lasix] 20 mg PO DAILY #3 tablet Comments: Thank you for allowing us to care for you today [facility]. Please make a follow-up appoint with your primary care doctor. I have written you a 3-day prescription for a diuretic. I recommend increasing your intake and potassium rich foods while on this diuretic. Please continue to use your compression stockings at home. Whenever possible keep your lower extremities elevated. If you have any new or worsening symptoms please not hesitate to return.
[2022-09-29 00:07] VITALS: BP 109/69
== END 2022-09-29 00:05 | disposition home or self-care (01) ==
LOC: ED 19:55
DX: R60.9 Edema, unspecified (principal)
CPT/HCPCS: 36415; 80053; 81001; 81003; 83880; 85025; 87086; 99283

== ENCOUNTER 2022-10-11 22:01 | Emergency (ER) | payer OTHER, MEDICAID ==
[2022-10-11] MEDS ORDERED: SODIUM CHLORIDE 0.9% 500 ML IV STA (22:22)
[2022-10-11] MEDS ORDERED: ONDANSETRON 4 MG/2 ML VIAL IVP STA (22:22)
--- NOTE | 2022-10-11 22:25 | ED Physician Documentation ---
PD HPI NVD - Stated complaint Stated Complaint: VOMITTING/POSS ALLERGIC REATION - Chief complaint Chief Complaint: Abd Pain - History obtained from History obtained from: Patient - Additonal information Additional information: Patient is a 37-year-old presenting for evaluation of nausea, vomiting starting this morning. Patient was recently started on torsemide and took her first dose this morning.A few hours later she developed nausea and has had vomiting throughout the day consisting of liquids. She has had 1 loose stool. She denies blood in emesis or stools. She denies abdominal pain, chest pain or difficulty breathing. She has been urinating without issue.She has a history of lower extremity edema and was recently given a short course of furosemide which did not help her so when she saw her PCP yesterday she was started on torsemide.She denies any sick contacts or eating anything that could have caused her symptoms. Review of Systems Constitutional: denies: Fever Cardiac: denies: Chest pain / pressure Respiratory: denies: Dyspnea GI: reports: Nausea, Vomiting. denies: Abdominal Pain : denies: Dysuria Neurologic: denies: Headache PD PAST MEDICAL HISTORY - Past Medical History Past Medical History: Yes Cardiovascular: None Respiratory: None Neuro: Fainting Endocrine/Autoimmune: HyPOthyroidism GI: None : None HEENT: None Psych: Depression, Anxiety, Bipolar disorder, Post traumatic stress disorder Musculoskeletal: None Derm: None - Past Surgical History Past Surgical History: Yes General: Cholecystectomy HEENT: Tonsil/Adenoidectomy - Present Medications Home Medications: Ambulatory Orders Medication Instructions Recorded Confirmed Levothyroxine [Synthroid] 88 mcg PO ONCEDAILY 08/12/13 10/11/22 lamoTRIgine [Lamictal Xr] 100 mg PO DAILY 09/06/16 10/11/22 ARIPiprazole [Abilify] 5 mg PO DAILY 10/11/22 10/11/22 Alprazolam [Xanax] 1 mg PO TID PRN 10/11/22 10/11/22 Methylphenidate HCl [Ritalin LA] 30 mg PO DAILY 10/11/22 10/11/22 Ondansetron Odt [Zofran] 4 mg TL Q6H PRN #10 tablet 10/11/22 Primidone [Mysoline] 200 mg PO DAILY 10/11/22 10/11/22 Venlafaxine ER [Effexor ER] 225 mg PO DAILY 10/11/22 10/11/22 cloNIDine [Catapres] 0.1 mg PO ONCE 10/11/22 10/11/22 - Allergies Allergies/Adverse Reactions: Allergies Allergy/AdvReac Type Severity Reaction Status Date / Time hydrocodone bitartrate * AdvReac Intermediate Hallucinati Verified 10/11/22 22:06 [From Vicodin] ons - Social History Does the pt smoke?: No Smoking Status: Never smoker Does the pt drink ETOH?: No Does the pt have substance abuse?: No - Immunizations Immunizations are current?: No Immunizations: TDAP >10years/unknown - POLST Patient has POLST: No PD ED PE NORMAL - General General: Alert and oriented X 3, No acute distress, Well developed/nourished - HEENT HEENT: Atraumatic - Neck Neck: Supple, no meningeal sign - Cardiac Cardiac: RRR, No murmur - Respiratory Respiratory: No respiratory distress, Clear bilaterally - Abdomen Abdomen: Normal bowel sounds, Soft, Non tender, Non distended - Derm Derm: Warm and dry - Extremities Extremities: No calf tenderness / cord - Neuro Neuro: Normal speech Results - Vitals Vitals: Vital Signs - 24 hr 10/11/22 10/11/22 22:09 22:31 Temperature 36.9 C Heart Rate 79 64 Respiratory 16 16 Rate Blood Pressure 132/79 H 122/88 H O2 Saturation 96 98 Oxygen O2 Source Room air - Labs Labs: Laboratory Tests 10/11/22 10/11/22 10/11/22 22:32 22:32 22:55 WBC 8.9 RBC 4.87 Hgb 14.8 Hct 45.3 MCV 93.0 MCH 30.4 MCHC 32.7 RDW 12.6 Plt Count 218 MPV 9.7 Neut # (Auto) 7.5 H Lymph # (Auto) 0.7 L [place] # (Auto) 0.6 Eos # (Auto) 0.0 Baso # (Auto) 0.0 Absolute Nucleated RBC 0.00 Nucleated RBC % 0.0 Sodium 138 Potassium 3.9 Chloride 101 Carbon Dioxide 26 Anion Gap 11.0 BUN 18 Creatinine 1.0 Estimated GFR (MDRD) 62 L Glucose 125 H Calcium 8.7 Total Bilirubin 0.7 AST 33 ALT 46 Alkaline Phosphatase 68 Total Protein 7.2 Albumin 4.3 Globulin 2.9 Albumin/Globulin Ratio 1.5 Lipase 33 Urine Color YELLOW Urine Clarity CLEAR Urine pH 6.0 Ur Specific [place] >=1.030 H Urine Protein TRACE Urine Glucose (UA) NEGATIVE Urine Ketones NEGATIVE Urine Occult Blood MODERATE H Urine Nitrite NEGATIVE Urine Bilirubin NEGATIVE Urine Urobilinogen 0.2 (NORMAL) Ur Leukocyte Esterase NEGATIVE Urine RBC 0-5 Urine WBC 0-3 Ur Squamous Epith Cells RARE Squamous Urine Bacteria Few Ur Microscopic Review INDICATED Urine Culture Comments NOT INDICATED Urine HCG, Qual NEGATIVE PD Medical Decision Making - ED course Complexity details: reviewed results, re-evaluated patient, d/w patient ED course: Patient is a 37-year-old presenting for evaluation of nausea and vomiting since this morning after starting torsemide. Her vital signs are stable and her abdominal exam is benign.IV was established and patient was given 500 cc of normal saline along with 4 mg of IV Zofran with improvement in her symptoms. CBC, chemistries and urine analysis were reviewed without significant abnormalities.Her repeat abdominal exam remained benign. She is feeling much better and comfortable with continued supportive care.Discussed that her symptoms could be related to torsemide versus another process such as a viral illness. Counseled that she should have close follow-up with her PCP in regards to continue this medication versus considering another agent. Patient was also counseled on concerning symptoms to return for. Departure - Departure Disposition: 01 Home, Self Care Clinical Impression: Nausea & vomiting Instructions: ED Nausea Vomiting Prescriptions: Ondansetron Odt [Zofran] 4 mg TL Q6H PRN #10 tablet PRN Reason: Nausea / Vomiting Comments: Please reach out to your primary care doctor tomorrow to discuss your symptoms today. While your symptoms could be related to the new medication you were started on (torsemide), that could also be related to another process such as a viral illness. I have sent a prescription of Zofran to [facility] in [place]. Please continue with making sure you are staying hydrated. If you develop any worsening symptoms such as continued vomiting, abdominal pain or any new concerns please consider return to the emergency department. Discharge Date/Time: 10/11/22 23:32
[2022-10-11 22:31] VITALS: BP 122/88
[2022-10-11 22:39] LABS: BASOPHILS % (AUTO) 0.2 %; EOSINOPHILS % (AUTO) 0.1 %; HCT - HEMATOCRIT 45.3 % (37.0-47.0); HGB - HEMOGLOBIN 14.8 g/dL (12.0-16.0); LYMPHOCYTES # (AUTO) 0.7 10^3/uL (1.5-3.5); LYMPHOCYTES % (AUTO) 8.3 %; MEAN CORPUSCULAR HEMOGLOBIN 30.4 pg (27.0-31.0); MEAN CORPUSCULAR HGB CONC 32.7 g/dL (32.0-36.0); MEAN PLATELET VOLUME 9.7 fL (7.9-10.8); MONOCYTES # (AUTO) 0.6 10^3/uL (0.0-1.0); MONOCYTES % (AUTO) 7.2 %; NEUTROPHILS # (AUTO) 7.5 10^3/uL (1.5-6.6); NEUTROPHILS % (AUTO) 83.9 %; PLT - PLATELET COUNT 218 10^3/uL (130-450); RED BLOOD COUNT 4.87 10^6/uL (4.20-5.40); RED CELL DISTRIBUTION WIDTH 12.6 % (12.0-15.0); WHITE BLOOD COUNT 8.9 x10^3/uL (4.8-10.8)
[2022-10-11 23:08] LABS: GLUCOSE, URINE (UA) NEGATIVE (NEGATIVE); KETONES,URINE (UA) NEGATIVE (NEGATIVE); LEUKOCYTE ESTERASE, URINE NEGATIVE (NEGATIVE); NITRITE,URINE NEGATIVE (NEGATIVE); OCCULT BLOOD,URINE MODERATE (NEGATIVE); PROTEIN,URINE TRACE mg/dL (NEGATIVE); UROBILINOGEN,URINE 0.2 (NORMAL) E.U./dL (NORMAL)
[2022-10-11 23:10] LABS: ALBUMIN 4.3 g/dL (3.2-5.5); ALBUMIN/GLOBULIN RATIO 1.5 (1.0-2.2); BILIRUBIN,TOTAL 0.7 mg/dL (0.2-1.0); CALCIUM 8.7 mg/dL (8.5-10.3); POTASSIUM 3.9 mmol/L (3.5-5.0); TOTAL PROTEIN 7.2 g/dL (6.7-8.2)
[2022-10-11 23:18] LABS: BILIRUBIN,URINE NEGATIVE (NEGATIVE); CLARITY,URINE CLEAR (CLEAR); HCG UR QUAL NEGATIVE; ICTOTEST,URINE NEGATIVE
[2022-10-11 23:19] LABS: BACTERIA,URINE Few /HPF (None Seen); RBC,URINE 0-5 /HPF (0-5); SQUAMOUS EPITHELIAL CELL,UR RARE Squamous (<= Few); WBC,URINE 0-3 /HPF (0-5)
[2022-10-11] MEDS ORDERED: ONDANSETRON ODT 4 MG Prepack 2 TL PRN (23:23)
== END 2022-10-11 23:32 | disposition home or self-care (01) ==
LOC: ED 22:01
DX: R11.2 Nausea with vomiting, unspecified (principal); E03.9 Hypothyroidism, unspecified; Z79.899 Other long term (current) drug therapy
CPT/HCPCS: 36415; 80053; 81001; 81003; 81025; 83690; 85025; 87086; 96374; 99284

== ENCOUNTER 2023-01-20 07:37 | Outpatient (CLI) | payer MEDICAID ==
[2023-01-20 13:01] LABS: BASOPHILS # (AUTO) 0.1 10^3/uL (0.0-0.1); EOSINOPHILS # (AUTO) 0.1 10^3/uL (0.0-0.7); EOSINOPHILS % (AUTO) 1.9 %; HCT - HEMATOCRIT 42.6 % (37.0-47.0); HGB - HEMOGLOBIN 14.1 g/dL (12.0-16.0); LYMPHOCYTES # (AUTO) 1.6 10^3/uL (1.5-3.5); LYMPHOCYTES % (AUTO) 31.3 %; MEAN CORPUSCULAR HEMOGLOBIN 31.1 pg (27.0-31.0); MEAN CORPUSCULAR HGB CONC 33.1 g/dL (32.0-36.0); MEAN CORPUSCULAR VOLUME 93.8 fL (81.0-99.0); MEAN PLATELET VOLUME 10.7 fL (7.9-10.8); MONOCYTES # (AUTO) 0.6 10^3/uL (0.0-1.0); MONOCYTES % (AUTO) 11.1 %; NEUTROPHILS # (AUTO) 2.9 10^3/uL (1.5-6.6); NEUTROPHILS % (AUTO) 54.3 %; PLT - PLATELET COUNT 237 10^3/uL (130-450); RED BLOOD COUNT 4.54 10^6/uL (4.20-5.40); RED CELL DISTRIBUTION WIDTH 12.7 % (12.0-15.0); WHITE BLOOD COUNT 5.2 x10^3/uL (4.8-10.8)
[2023-01-20 13:27] LABS: FREE T3 3.05 pg/mL (2.5-3.9)
[2023-01-20 13:28] LABS: FREE T4 (FREE THYROXINE) 0.65 ng/dL (0.58-1.64)
[2023-01-20 13:31] LABS: ALBUMIN 3.9 g/dL (3.2-5.5); ALBUMIN/GLOBULIN RATIO 1.5 (1.0-2.2); ALKALINE PHOSPHATASE 53 IU/L (42-121); ALT ALANINE AMINOTRANSFERASE 35 IU/L (10-60); AST ASPARTATE AMINOTRANSFERASE 26 IU/L (10-42); BILIRUBIN,TOTAL 0.3 mg/dL (0.2-1.0); BUN - BLOOD UREA NITROGEN 12 mg/dL (6-20); CALCIUM 8.7 mg/dL (8.5-10.3); CARBON DIOXIDE - CO2 26 mmol/L (21-32); CHLORIDE 107 mmol/L (101-111); CHOL/HDL RATIO 5.6 (<4.4); CHOLESTEROL 201 mg/dL; GFR - MDRD 62 (>89); GLUCOSE 114 mg/dL (70-100); HDL CHOLESTEROL 36 mg/dL; LDL CHOLESTEROL,CALCULATED 113 mg/dL; LDL/HDL RATIO 3.1 (<4.4); POTASSIUM 3.9 mmol/L (3.5-5.0); SODIUM 138 mmol/L (135-145); TOTAL PROTEIN 6.5 g/dL (6.7-8.2); TRIGLYCERIDES 262 mg/dL; VLDL CHOLESTEROL 52 mg/dL
[2023-01-20 13:51] LABS: CRP - C-REACTIVE PROTEIN < 1.0 mg/dL (0-1.0)
[2023-01-22 18:07] LABS: ANTINUCLEAR ANTIBODIES IFA Negative (.)
== END 2023-01-20 07:38 | disposition home or self-care (01) ==
LOC: LAB.N 07:37
PROVIDERS: ATTEND Physician Assistant
DX: E78.5 Hyperlipidemia, unspecified (principal); Z13.9 Encounter for screening, unspecified; M25.50 Pain in unspecified joint; E03.9 Hypothyroidism, unspecified
CPT/HCPCS: 36415; 80053; 80061; 82728; 83721; 84439; 84443; 84481; 85025; 85651; 86038; 86140

== ENCOUNTER 2023-03-24 10:16 | Outpatient (CLI) | payer MEDICAID | END 2023-03-24 10:17 | disposition home or self-care (01) | LOC: NS 10:16 | PROVIDERS: ATTEND Physician Assistant | DX: Z71.3 Dietary counseling and surveillance (principal); E78.5 Hyperlipidemia, unspecified; R73.01 Impaired fasting glucose; E66.01 Morbid (severe) obesity due to excess calories; Z68.43 Body mass index [BMI] 50.0-59.9, adult | CPT/HCPCS: 97802 ==

== ENCOUNTER 2023-04-26 18:15 | Outpatient (CLI) | payer OTHER, MEDICAID ==
--- NOTE | 2023-04-27 12:57 | XRAY Report ---
PROCEDURE: Knee 4 View RT INDICATIONS: KNEE JOINT PAIN,RIGHT TECHNIQUE: 4 views of the right knee(s) were acquired. COMPARISON: None. FINDINGS: Bones: No fractures or dislocations. No suspicious bony lesions. Soft tissues: Small knee joint effusion. No suspicious soft tissue calcifications or masses. IMPRESSION: No acute bony abnormality. Small knee joint effusion. No significant degenerative change. Reviewed by: Ashish Guerrier on 04/27/2023 12:55 PM PDT Approved by: Ashish Guerrier on 04/27/2023 12:55 PM PDT Station ID: [id number]
== END 2023-04-26 18:16 | disposition home or self-care (01) ==
LOC: DI 18:15
PROVIDERS: ATTEND Nurse Practitioner Family
DX: M25.561 Pain in right knee (principal); M25.461 Effusion, right knee

== ENCOUNTER 2023-05-12 19:37 | Outpatient (CLI) | payer MEDICAID | END 2023-05-12 19:38 | disposition home or self-care (01) | LOC: SC 19:37 | PROVIDERS: ATTEND Nurse Practitioner Family | DX: G47.33 Obstructive sleep apnea (adult) (pediatric) (principal); E66.01 Morbid (severe) obesity due to excess calories; Z68.43 Body mass index [BMI] 50.0-59.9, adult | CPT/HCPCS: 95810 ==

== ENCOUNTER 2023-05-15 08:44 | Outpatient (CLI) | payer OTHER, MEDICAID ==
--- NOTE | 2023-05-15 16:03 | MRI Report ---
PROCEDURE: KNEE WO - RT INDICATIONS: RIGHT KNEE PAIN TECHNIQUE: Noncontrast sagittal PD fast spin echo and T2 fast spin echo with fat saturation, sagittal 3-D gradie nt sequence with fat saturation; coronal T1 spin echo and PD fast spin echo with fat saturation, and axial PD fast spin echo with fat saturation through the knee. COMPARISON: Right knee radiograph dated 04/26/2023. FINDINGS: Image quality: Excellent. Menisci: The medial and lateral menisci demonstrate normal morphology and internal signal. The meni scal root ligaments appear intact. Cruciate ligaments: The anterior and posterior cruciate ligaments appear intact. Medial structures: The medial collateral ligament appears thickened with surrounding soft tissue balta ma. The posterior oblique ligament, semimembranosus tendon insertions, and oblique popliteal ligamen t, and meniscocapsular junction appear intact. Visualized portions of the pes anserinus tendons appe ar normal. No abnormal bursal fluid. Lateral structures: The lateral collateral ligament, long and short heads of the biceps femoris tend on appear mildly thickened. The popliteus tendon appears normal; the popliteofibular ligament appear s intact. The posterosuperior and anteroinferior popliteomeniscal fascicles appear intact. The arcu ate and fabellofibular ligaments appear intact, around the lateral inferior geniculate artery. Iliot ibial band appears normal. Anterior structures: The quadriceps and patellar tendons appear intact. Patellar alignment is mallory l. No femoral trochlear dysplasia or ventral trochlear prominence. No edema in the infrapatellar fa t pad. Bones and cartilage: No bone marrow contusions or fractures. Low-grade chondromalacia in medial femo ral tibial compartment and lateral portion of patella femoral compartment is seen. Joint space: There is physiologic knee joint fluid. There is a 1 x 0.7 x 4.9 cm Ferguson's cyst. Mallory l appearing synovial plicae are incidentally noted. IMPRESSION: 1. No evidence of focal meniscal tear. 2. The cruciate ligaments are intact. 3. Low to moderate grade MCL sprain/partial thickness tear. Low-grade LCL sprain. Mild distal biceps femoris tendinosis. 4. Low-grade chondromalacia in medial femoral tibial compartment and lateral portion of patella femor al compartment. No fracture or dislocation. No significant joint effusion. Small Ferguson's cyst as abov e. Reviewed by: Ismael Nguyen MD on 05/15/2023 4:02 PM PDT Approved by: Ismael Nguyen MD on 05/15/2023 4:02 PM PDT Station ID: [id number]
== END 2023-05-15 08:45 | disposition home or self-care (01) ==
LOC: DI 08:44
PROVIDERS: ATTEND Nurse Practitioner Family
DX: S83.411A Sprain of medial collateral ligament of right knee, initial encounter (principal); S83.421A Sprain of lateral collateral ligament of right knee, initial encounter; M94.261 Chondromalacia, right knee; M71.21 Synovial cyst of popliteal space [Baker], right knee

== ENCOUNTER 2023-06-06 08:31 | Outpatient (CLI) | payer MEDICAID | END 2023-06-06 08:32 | disposition critical access hospital (66) | LOC: EMS 08:31 | DX: R42 Dizziness and giddiness (principal); R53.83 Other fatigue; R53.81 Other malaise | CPT/HCPCS: A0425; A0429; A0999 ==

== ENCOUNTER 2023-06-06 08:52 | Emergency (ER) | payer MEDICAID, OTHER ==
[2023-06-06] MEDS ORDERED: SODIUM CHLORIDE 0.9% 1,000 ML IV STA (09:17)
--- NOTE | 2023-06-06 09:18 | ED Physician Documentation ---
PD HPI ALTERED MENTAL STATUS - Stated complaint Stated Complaint: DIZZY/LETHARGIC - Chief complaint Chief Complaint: Neuro - History obtained from History obtained from: Patient, Family (spouse) - History of Present Illness Timing - onset: How many days ago (6) Timing - duration: Days (6) Timing - details: Gradual onset (onset when started tompiramate last week, and continues despite stopping it yesterday.) Quality / character: Confused, Other (lightheaded and sluggish thought process.) Associated symptoms: No: Fever, Headache Contributing factors: Recent med change (had zyprexa started about 2-3 weeks ago by Psych and was feeling more focused and less auditory voices. Did not feel badly with that med. Started the Topiramate by [facility] for tremor 6 days ago with above symptoms.) Basline status: Alert and oriented X 3, Ambulatory Similar symptoms before: Has not had sx before Recently seen: Clinic Review of Systems Constitutional: denies: Fever, Chills Nose: denies: Rhinorrhea / runny nose, Congestion Throat: denies: Sore throat Respiratory: denies: Dyspnea, Cough GI: reports: Nausea. denies: Vomiting, Diarrhea Neurologic: reports: Near syncope, Altered mental status (lightheaded and slugish thought process). denies: Focal weakness, Syncope, Headache, Head injury PD PAST MEDICAL HISTORY - Past Medical History Past Medical History: Yes Cardiovascular: None Respiratory: None Neuro: Tremors, Fainting Endocrine/Autoimmune: HyPOthyroidism GI: None : None HEENT: None Psych: Depression, Anxiety, Bipolar disorder, Post traumatic stress disorder Musculoskeletal: None Derm: None - Past Surgical History Past Surgical History: Yes General: Cholecystectomy HEENT: Tonsil/Adenoidectomy - Present Medications Home Medications: Ambulatory Orders Medication Instructions Recorded Confirmed Levothyroxine [Synthroid] 88 mcg PO DAILY 08/12/13 06/06/23 lamoTRIgine [Lamictal Xr] 200 mg PO HS 09/06/16 06/06/23 Cetirizine [ZyrTEC] 100 mg ORAL DAILY 04/06/23 06/06/23 Fluoxetine HCl [Prozac] 20 mg ORAL DAILY PM 04/06/23 06/06/23 Gabapentin [Neurontin] 300 mg ORAL TID 04/06/23 06/06/23 Prazosin [Minipress] 1 mg ORAL HS 04/06/23 06/06/23 diazePAM [Diazepam] 4 mg ORAL DAILY 04/06/23 06/06/23 traZODone [Desyrel] 50 mg ORAL HS 04/06/23 06/06/23 Diazepam [Valium] 7 mg PO DAILY PM 06/06/23 06/06/23 OLANZapine [Zyprexa] 10 mg PO HS 06/06/23 06/06/23 - Allergies Allergies/Adverse Reactions: Allergies Allergy/AdvReac Type Severity Reaction Status Date / Time metformin Allergy Unknown Verified 06/06/23 09:08 hydrocodone bitartrate * AdvReac Intermediate Hallucinati Verified 04/07/23 09:06 [From Vicodin] ons - Social History Does the pt smoke?: No Smoking Status: Never smoker Does the pt drink ETOH?: No Does the pt have substance abuse?: No - Immunizations Immunizations are current?: No Immunizations: TDAP >10years/unknown - POLST Patient has POLST: No PD ED PE NORMAL - Vitals Vital signs reviewed: Yes - General General: Alert and oriented X 3, No acute distress, Well developed/nourished - HEENT HEENT: PERRL, EOMI - Neck Neck: Supple, no meningeal sign, No adenopathy - Cardiac Cardiac: RRR, No murmur - Respiratory Respiratory: No respiratory distress, Clear bilaterally - Abdomen Abdomen: Soft, Non tender - Derm Derm: Normal color, Warm and dry - Extremities Extremities: Normal ROM s pain - Neuro Neuro: Alert and oriented X 3, No motor deficit, No sensory deficit, Normal speech Results - Vitals Vitals: Vital Signs - 24 hr 06/06/23 06/06/23 09:03 09:27 Temperature 36.5 C Heart Rate 70 68 Respiratory 18 96 H Rate Blood Pressure 125/83 H 130/69 O2 Saturation 96 20 L Oxygen O2 Source Room air - Labs Labs: Laboratory Tests 06/06/23 06/06/23 09:42 09:42 WBC 6.8 RBC 4.32 Hgb 13.1 Hct 39.5 MCV 91.4 MCH 30.3 MCHC 33.2 RDW 12.8 Plt Count 224 MPV 9.8 Neut # (Auto) 4.4 Lymph # (Auto) 1.4 L [place] # (Auto) 0.8 Eos # (Auto) 0.1 Baso # (Auto) 0.1 Absolute Nucleated RBC 0.00 Nucleated RBC % 0.0 Sodium 138 Potassium 3.8 Chloride 106 Carbon Dioxide 27 Anion Gap 5.0 L BUN 13 Creatinine 0.9 Estimated GFR (MDRD) 70 L Glucose 115 H Calcium 8.8 Magnesium 1.7 Total Bilirubin 0.3 AST 24 ALT 31 Alkaline Phosphatase 55 Total Creatine Kinase 418 H Total Protein 5.6 L Albumin 3.8 Globulin 1.8 L Albumin/Globulin Ratio 2.1 Lipase 29 PD Medical Decision Making - ED course Complexity details: reviewed results (basic labs, bruce sodium, glucose, potassium, are normal and not concurrent cause for symptoms. ), considered differential (timing of symptoms correlates with onset of new med, and c/w med side effects range. Topiramate would not add to serotonin effect so not concerning for serotonin syndrome. She appears okay otherwise and labs checked to ensure not concurrent low sodium/etc. Labs are okay. ), d/w patient Departure - Departure Disposition: 01 Home, Self Care Clinical Impression: Light-headed feeling, Medication side effects Condition: Stable Record reviewed to determine appropriate education?: Yes Comments: Your basic blood count and electrolytes and blood sugar are normal. We did give you some fluids for hydration here. It does sound like your symptoms are side effects of the recent topiramate. It can take several days for it to "drift" out of your system and the side effects to dissipate. Stay well-hydrated. I would anticipate improvement over the next 2 to 3 days. Obviously continue off the topiramate. Continue with your other medications. Your symptoms side effects certainly could be enhanced by having had 2 medications recently added. However I would just stop the topiramate for now. It may be the topiramate would not have the same degree of side effects if started in the near future after your other medications have had time to adjust better. Discussed this with your neurologist. Your symptoms could also be contributed by an early viral illness or such. Recheck if you start developing fevers, congestion, cough or other viral type symptoms. Forms: PCP List Discharge Date/Time: 06/06/23 11:05
[2023-06-06 09:32] VITALS: BP 130/69; O2SAT 20
[2023-06-06 09:46] LABS: BASOPHILS # (AUTO) 0.1 10^3/uL (0.0-0.1); BASOPHILS % (AUTO) 0.7 %; EOSINOPHILS # (AUTO) 0.1 10^3/uL (0.0-0.7); EOSINOPHILS % (AUTO) 2.1 %; HCT - HEMATOCRIT 39.5 % (37.0-47.0); HGB - HEMOGLOBIN 13.1 g/dL (12.0-16.0); LYMPHOCYTES # (AUTO) 1.4 10^3/uL (1.5-3.5); LYMPHOCYTES % (AUTO) 20.3 %; MEAN CORPUSCULAR HEMOGLOBIN 30.3 pg (27.0-31.0); MEAN CORPUSCULAR HGB CONC 33.2 g/dL (32.0-36.0); MEAN CORPUSCULAR VOLUME 91.4 fL (81.0-99.0); MEAN PLATELET VOLUME 9.8 fL (7.9-10.8); MONOCYTES # (AUTO) 0.8 10^3/uL (0.0-1.0); MONOCYTES % (AUTO) 11.3 %; NEUTROPHILS # (AUTO) 4.4 10^3/uL (1.5-6.6); PLT - PLATELET COUNT 224 10^3/uL (130-450); RED BLOOD COUNT 4.32 10^6/uL (4.20-5.40); RED CELL DISTRIBUTION WIDTH 12.8 % (12.0-15.0); WHITE BLOOD COUNT 6.8 x10^3/uL (4.8-10.8)
[2023-06-06 10:01] LABS: ALBUMIN 3.8 g/dL (3.2-5.5); ALBUMIN/GLOBULIN RATIO 2.1 (1.0-2.2); BILIRUBIN,TOTAL 0.3 mg/dL (0.2-1.0); CALCIUM 8.8 mg/dL (8.5-10.3); CREATININE 0.9 mg/dL (0.6-1.3); MAGNESIUM 1.7 mg/dL (1.7-2.3); POTASSIUM 3.8 mmol/L (3.5-4.5); TOTAL PROTEIN 5.6 g/dL (6.4-8.9)
== END 2023-06-06 11:05 | disposition home or self-care (01) ==
LOC: EDUNIT# → ED 08:52
DX: R42 Dizziness and giddiness (principal); R41.0 Disorientation, unspecified; T43.595A Adverse effect of other antipsychotics and neuroleptics, initial encounter
CPT/HCPCS: 36415; 80053; 82550; 83690; 83735; 85025; 99283; 99284

== ENCOUNTER 2023-06-13 08:44 | Emergency (ER) | payer MEDICAID, OTHER ==
[2023-06-13] MEDS ORDERED: ACETAMINOPHEN 500 MG TABLET PO STA (09:12)
[2023-06-13] MEDS ORDERED: LIDOCAINE PATCH 5% TOP STA (09:12)
--- NOTE | 2023-06-13 09:22 | ED Physician Documentation ---
PD HPI BACK PAIN - Stated complaint Stated Complaint: BACK PX - Chief complaint Chief Complaint: Back Pain - History obtained from History obtained from: Patient - Additional information Additional information: Patient is a 38-year-old female presenting for evaluation of low back pain that has been ongoing for a few weeks. Patient states that she slipped on a piece of carpet and fell down 8-9 steps. She did not hit her head or have LOC. She stated that the back pain started slowly after that has been progressively getting worse. She does have a history of anxiety and is on gabapentin and tj zepam for that. She denies taking any medication specifically for this pain including anti-inflammatories. She went to a chiropractor yesterday who did some adjustments but no imaging. She states that initially the pain did feel better and she felt like she was able to walk straighter but this morning it felt worse.She denies bowel or bladder incontinence, saddle anesthesia, history of IV drug use, History of cancer. She reports the pain is worse when she is standing up for a long time like at the kitchen counter or in the bathroom.She has been able to ambulate. She is also recovering from a knee injury to the right for the past 2 months and has recently started physical therapy for that. She does have a PCP appointment this afternoon at 3 PM for this issue but felt that her pain was too severe this morning for her to go to work. 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 Denies that she is lifting at work. 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 HEENT: Tonsil/Adenoidectomy - Present Medications Home Medications: Ambulatory Orders Medication Instructions Recorded Confirmed Levothyroxine [Synthroid] 88 mcg PO DAILY 08/12/13 06/13/23 lamoTRIgine [Lamictal Xr] 200 mg PO HS 09/06/16 06/13/23 Cetirizine [ZyrTEC] 100 mg ORAL DAILY 04/06/23 06/13/23 Fluoxetine HCl [Prozac] 20 mg ORAL DAILY PM 04/06/23 06/13/23 Gabapentin [Neurontin] 300 mg ORAL TID 04/06/23 06/13/23 Prazosin [Minipress] 1 mg ORAL HS 04/06/23 06/13/23 diazePAM [Diazepam] 4 mg ORAL DAILY 04/06/23 06/13/23 traZODone [Desyrel] 50 mg ORAL HS 04/06/23 06/13/23 Diazepam [Valium] 7 mg PO DAILY PM 06/06/23 06/13/23 OLANZapine [Zyprexa] 10 mg PO HS 06/06/23 06/13/23 Lidocaine Patch 5% [Lidoderm Patch] 1 patch TOP DAILY PRN #10 patch 06/13/23 - Allergies Allergies/Adverse Reactions: Allergies Allergy/AdvReac Type Severity Reaction Status Date / Time metformin Allergy Unknown Verified 06/06/23 09:08 hydrocodone bitartrate * AdvReac Intermediate Hallucinati Verified 04/07/23 09:06 [From Vicodin] ons topiramate [From Topamax] AdvReac Unknown Verified 06/13/23 08:55 - Social History Does the pt smoke?: No Smoking Status: Never smoker Does the pt drink ETOH?: No Does the pt have substance abuse?: No - Immunizations Immunizations are current?: No Immunizations: TDAP >10years/unknown - POLST Patient has POLST: No PD ED PE NORMAL - General General: Alert and oriented X 3, No acute distress, Well developed/nourished, Other (Changes positions easily on stretcher from sitting to laying down and back to sitting. Also able to maneuver a knee brace off without any help) - HEENT HEENT: Atraumatic, Moist mucous membranes, Pharynx benign - Neck Neck: Supple, no meningeal sign - Cardiac Cardiac: RRR, Strong equal pulses - Respiratory Respiratory: No respiratory distress, Clear bilaterally - Abdomen Abdomen: Soft, Non tender, Non distended - Back Back: No CVA TTP, Other (Mild low lumbar tenderness to palpation, tenderness across low lumbar region bilaterally; No step-offs or deformities) - Extremities Extremities: Other (Normal strength in bilateral hip flexion, knee extension and flexion, ankle dorsiflexion and plantarflexion; Patellar and Achilles reflexes intact bilaterally) - Neuro Neuro: Alert and oriented X 3, No motor deficit, No sensory deficit, Normal spe ech Results - Vitals Vitals: Vital Signs - 24 hr 06/13/23 06/13/23 08:51 10:15 Temperature 36.1 C L Heart Rate 84 75 Respiratory 15 15 Rate Blood Pressure 130/78 117/74 O2 Saturation 98 100 Oxygen O2 Source Room air PD Medical Decision Making - ED course Complexity details: reviewed results, re-evaluated patient, d/w patient ED course: Patient is a 38-year-old female presenting for evaluation of low back pain. This is in the setting of a fall on stairs a few weeks ago. An x-ray was obtained which I reviewed I see no fracture or dislocation. The patient has a normal neuro exam. She ambulates without any difficulty. No red flag signs or symptoms in regards to her back pain to suggest cord compression, epidural abscess or hematoma. Patient was given acetaminophen here. We are out of of lidocaine patches but also recommended this. She is already on diazepam for anxiety so do not think would be helpful to add another muscle relaxer. Patient has a PCP appointment this afternoon. Discussed continued supportive care as well as close follow-up and concerning symptoms to return for. Departure - Departure Disposition: 01 Home, Self Care Clinical Impression: Low back strain Condition: Stable Instructions: ED Low Back Pain Injury Prescriptions: Lidocaine Patch 5% [Lidoderm Patch] 1 patch TOP DAILY PRN #10 patch PRN Reason: pain Comments: We obtained an x-ray of your back which does not show a fracture or dislocation with the bones. You likely have strained to this area and I would recommend at least starting with anti-inflammatories and lidocaine patches. You can use 1000 mg of acetaminophen every 6-8 hours as well as ibuprofen 600 mg every 6-8 hours as needed for pain. I have sent a prescription to [facility] in [place]. I would keep your appointment with your PCP today to discuss further evaluation such as physical therapy or if you would need an MRI as an outpatient. Return to the emergency department if you develop any worsening symptoms such as Difficulty walking, Difficulty controlling your bowel or bladder function. Forms: Activity restrictions Discharge Date/Time: 06/13/23 10:15
--- NOTE | 2023-06-13 09:39 | XRAY Report ---
PROCEDURE: Lumbar Spine 2 View INDICATIONS: fall/pain TECHNIQUE: 3 views of the lumbar spine were acquired. COMPARISON: None. FINDINGS: Bones: 6 [id number] vertebrae are present. There is normal bony alignment. No vertebral body compression fractures. No suspicious bony lesions. Soft tissues: Overlying bowel gas pattern is normal. No suspicious soft tissue calcifications. IMPRESSION: 1. Incidental note made of the presence of 6 nonrib-bearing lumbar vertebral bodies. 2. No acute bony abnormality. Reviewed by: Clark Momin MD on 06/13/2023 9:37 AM PST Approved by: Clark Momin MD on 06/13/2023 9:37 AM PST Station ID: [id number]
[2023-06-13 10:31] VITALS: BP 117/74; O2SAT 100
== END 2023-06-13 10:15 | disposition home or self-care (01) ==
LOC: ED 08:44
DX: S39.012A Strain of muscle, fascia and tendon of lower back, initial encounter (principal); X58.XXXA Exposure to other specified factors, initial encounter; W10.8XXA Fall (on) (from) other stairs and steps, initial encounter
CPT/HCPCS: 72100; 99283; A9270

== ENCOUNTER 2023-06-23 15:22 | Outpatient (CLI) | payer MEDICAID ==
--- NOTE | 2023-06-23 15:48 | Sleep Patient Instructions ---
Sleep Center Visit Summary - Patient Visit Information Reason for Visit: Sleep study follow-up - Patient Instructions Instructions Attached: CPAP Additional Instructions: You are being started on CPAP therapy with pressure setting at 4-15 cmH2O. You w ill need to call the sleep care office to set up your follow up once you have your APAP machine and we will schedule a visit to check compliance and response to therapy at that time. You may call the office with any concerns about pressure feeling too low or too much for adjustment, if needed. You should contact DME supplier for any questions or concerns about mask or equipment. Please call office to schedule a follow up appointment in the sleep care office one month after obtaining new device. - Clinic Information Contact: [facility] [address] [place] [address] [email or web address] T: [phone]
--- NOTE | 2023-06-23 15:52 | SLEEP CARE CONSULTATION ---
Information from patient questionnaire entered by Chaparrita Egn. I have reviewed and concur with the information entered by Chaparrita Eng. This document represents the service I personally performed and the decisions made by , Terese Hernandez ARNP. History of Present Illness Service Date and Time: 06/23/2023 152 Initial [place] Sleepiness Scale score: 15 (04/05/23) Current [place] Sleepiness Scale score: 13 (06/23/23) Additional HPI information: IRASEMA TOSCANO returns for follow up and results of the recently performed polysomnography. The sleep study showed severe obstructive sleep apnea with an average AHI of 30.8 and michael oxygen saturation of 83%. I explained the pathophysiology behind obstructive sleep apnea. We then spent quite a bit of time discussing different treatment options. For mild obstructive sleep apnea, surgery and oral appliance are alternatives to nasal CPAP therapy but in moderate or severe cases, nasal CPAP is the most effective and reliable treatment. I reviewed the impact of weight changes on sleep apnea and strongly recommended losing weight. I strongly recommended that patient change to CPAP therapy to treat her sleep apnea. After some discussion, the patient opted to go with the nasal CPAP therapy. Nasal autoCPAP set at 4-15 cmH20 will be ordered with rationale explained. A manual titration study will be ordered if unable to find optimal pressure with office adjustments. I explained how CPAP machine works and what to expect when using the machine. Using CPAP every night in order to get used to it was emphasized. Patient advised to put CPAP mask on before getting into bed so as not to fall asleep without CPAP. To assist acclimation to CPAP use, it could also be used for a short time during day while reading or watching TV. The patient was instructed to call the CPAP supplier to discuss any mechanical problem that may occur. If the mask given is uncomfortable or is difficult to keep on through the night even with adjustment, contact the CPAP supplier as many will replace with another mask style if notified before 30 days. If snoring or perceives is not getting enough air or too much air from the machine, notify this office. Patient does not drink alcohol. Patient was cautioned about risks of drowsy driving until sleepiness symptoms resolve. Patient denies drowsy driving. Sleep Study - Results Type of Sleep Study: Polysomnography (COMPLETED 05/12/23) Prior sleep studies: Yes Year and Where: HERE 1-3YRS AGO Polysomnography/Home Sleep Study results: IMPRESSION: The quality of the study is good. The patient had normal sleep efficiency. The sleep architecture was relatively normal considering the first-night effect. Respiratory monitoring showed severe obstructive sleep apnea-hypopnea (AHI = 30.8) associated with frequent arousals, oxyhemoglobin desaturation and mild hypoxia (michael oxygen saturation of 83%). Baseline oxygen saturation was normal. The respiratory events occurred predominantly during supine sleep (supine AHI = 54.6; non-supine = 5.47). Snore was moderate in intensity. There was no significant periodic leg movement of sleep. Cardiac rhythm was normal sinus rhythm without significant arrhythmia. No abnormal behavior (parasomnia) observed during the night. Allergies and Home Medications Known drug allergies: Yes (as listed) Drug allergies reviewed: Yes Home medication list reviewed: Yes (updated in EMR) Allergy and home medication list: Allergies metformin Allergy (Verified 06/22/23 17:10) Unknown hydrocodone bitartrate * [From Vicodin] Adverse Reaction (Intermediate, Verified 06/22/23 17:10) Hallucinations topiramate [From Topamax] Adverse Reaction (Verified 06/22/23 17:10) Unknown lethargy Review of Systems Review of systems same as previous: No (SCHIZO EFFECTIVE DISORDER) Physical Exam Vital signs obtained and entered by: CHAPARRITA Chen MA Blood Pressure: 118/75 (LEFT) Cuff size: wrist Heart Rate: 76 O2 Saturation: 98 Height: 5 ft 6 in Weight: 389 lb 3.2 oz Body Mass Index: 62.8 BMI Classification: Morbidly Obese Impression and Plan 1. Obstructive Sleep Apnea-Hypopnea Syndrome, severe, with lowest oxygen saturation of 83%. Obviously this is the cause of the patients symptoms of unrefreshed sleep, and excessive daytime sleepiness. She had a previous diagnosis of mild RYAN but her severity has increased. I advised her that positive pressure therapy could benefit pre-diabetes, anxiety, depression, mood disorder (PTSD) and attention deficit. As mentioned above, the patient will be started on nasal autoCPAP therapy with pressure set at 4-15 cmH2O. A manual titration study will be completed if unable to find optimal treatment pressure with office adjustments. Compliance guidelines also reviewed. A copy of compliance guidelines will be given for reference at check out. Because the apnea is more severe supine, I instructed to avoid sleeping supine using pillow positioning until able to start CPAP use. 2. Hypoxemia, mild, with a michael oxygen saturation of 83% and 15.7 minutes spent under 90%. The baseline oxygen saturation was normal with an average oxygen saturation of 92%. 2. Obesity, Morbid. Currently patients BMI is 62.8. Obesity increases the risk of apnea, CPAP pressure requirements and overall health risks especially cardiovascular and diabetes. Thus patient is advised to lose weight. * Nasal auto CPAP therapy, pressure at 4-15 cm H2O. * Attempt to lose weight. * Avoid supine sleep until using CPAP. * The patient is again cautioned about driving until sleepiness completely resolves. * Return one month after CPAP obtained. I will assess response to therapy and compliance at that time. Counseling Topics: Weight loss health impact Prescriptions: Auto CPAP Plan: Compliance Visit after obtaining new CPAP Visit Type: In Office Time Spent with Patient (minutes): 20 Provider Statement: I spent 100% of the Face to Face Visit with the patient with greater than 50% spent counseling the patient and coordination of care.
[2023-06-23 15:57] VITALS: BP 118/75; O2SAT 98
== END 2023-06-23 15:23 | disposition home or self-care (01) ==
LOC: SC 15:22
PROVIDERS: ATTEND Nurse Practitioner Family
DX: G47.33 Obstructive sleep apnea (adult) (pediatric) (principal); R09.02 Hypoxemia; E66.01 Morbid (severe) obesity due to excess calories; Z68.44 Body mass index [BMI] 60.0-69.9, adult
CPT/HCPCS: 99212; 99213

== ENCOUNTER 2023-09-08 10:50 | Outpatient (CLI) | payer MEDICAID, OTHER ==
--- NOTE | 2023-09-08 11:12 | Sleep Patient Instructions ---
Sleep Center Visit Summary - Patient Visit Information Reason for Visit: First Compliance followup - Patient Instructions Additional Instructions: You were here for follow up of CPAP therapy. You will be continued on CPAP therapy with pressure at 9-13 cmH2O. Please let us know if the pressure change is uncomfortable and we can make further adjustments of the pressure. You should follow up with sleep care in 1-2 months. You may contact us sooner for any questions or concerns. - Clinic Information Contact: [facility] [address] [place] [id number] [email or web address] T: [phone]
--- NOTE | 2023-09-08 11:17 | SLEEP CARE CONSULTATION ---
Information from patient questionnaire entered by Arjun Eng. I have reviewed and concur with the information entered by Arjun Eng. This document represents the service I personally performed and the decisions made by , Terese Hernandez ARNP. History of Present Illness Service Date and Time: 09/08/2023 1050 Previous diagnosis: Severe, Obstructive Sleep Apnea-Hypopnea Syndrome AHI: 30.8 (05/12/23) Reason for follow up: first compliance Accompanied by: Spouse Equipment type: CPAP (RESMED Airsense 11, s/u 07/2023) Equipment obtained from: Other ([facility]) Mask style: Full face Backup mask available: No (will keep old mask when replaced) Last cushion change: 2-3 weeks Prior sleep studies: Yes Year and Where: HERE 1-3YRS AGO Type of Sleep Study: Polysomnography (COMPLETED 05/12/23) HPI additional information: IRASEMA TOSCANO was diagnosed to have severe, AHI 30.8, obstructive sleep apnea- hypopnea syndrome and returned today for CPAP therapy first compliance follow- up. Sleep Study - Results Type of Sleep Study: Polysomnography (COMPLETED 05/12/23) Prior sleep studies: Yes Year and Where: HERE 1-3YRS AGO CPAP Compliance Data - Data Reviewed with Patient Average duration of nightly device use: 7 HRS 42 MINS Compliance rate %: 100 (07/28/23-08/26/23; 30/30 days used) Current pressure setting (cmH2O): 4-15 (median 8.7, avg 12, max 13.2) Average residual AHI: 0.3 Central apnea: 0 Obstructive apnea: 0.2 Average large leak: 2.6 L/min Subjective Patient concerns: reports: dry mouth, nose, throat (dry mouth, crusts on lips). denies: aerophagia, mask discomfort, air blowing in eyes, mask leak noise, condensation in mask/hose, nasal congestion, epistaxis Observed to snore while using device: Yes (not often) Current pressure setting perceived as: comfortable On therapy, patient: reports: sleeping better, awakening more refreshed, being more awake and alert during the day, more rested overall. denies: drowsiness while driving Initial [place] Sleepiness Scale score: 15 (04/05/23) Current [place] Sleepiness Scale score: 17 (09/08/23) Allergies and Home Medications Known drug allergies: Yes (as listed) Drug allergies reviewed: Yes Home medication list reviewed: Yes (no changes) Allergy and home medication list: Allergies metformin Allergy (Verified 09/06/23 11:35) Unknown hydrocodone bitartrate * [From Vicodin] Adverse Reaction (Intermediate, Verified 09/06/23 11:35) Hallucinations topiramate [From Topamax] Adverse Reaction (Verified 09/06/23 11:35) Unknown lethargy Review of Systems Review of systems same as previous: Yes (NO CHANGE) Physical Exam Vital signs obtained and entered by: ARJUN Chen MA Blood Pressure: 126/88 (LEFT ARM) Cuff size: regular Heart Rate: 67 O2 Saturation: 96 Height: 5 ft 6 in Weight: 387 lb Body Mass Index: 62.4 BMI Classification: Morbidly Obese Impression and Plan 1. Obstructive Sleep Apnea-Hypopnea Syndrome, severe, with good treatment compliance and good apnea control. On CPAP therapy, the patient has better sleep quality and is more rested overall. She has significant improvement of her sleep apnea and is happy with CPAP therapy. She has had occasional dry lips and snoring noted by spouse. She is probably oral venting which can cause oral dryness. We discussed ways to reduce dryness by keeping mouth closed and she voiced understanding. The patients pressure will be changed to autoCPAP 9-13 cmH20 to reflect pressure being used. Patient advised to contact me if pressure change is uncomfortable so that it can be adjusted. Goals for apnea control discussed. Patient's apnea severity and rationale for treatment to reduce apnea, improve sleep quality and reduce cardiovascular and cerebrovascular events was reviewed. I also reviewed the benefit of consistent device use of CPAP for pre- diabetes, depression, anxiety, mood disorder (PTSD) and attention deficit. 2. Obesity, unspecified. Currently patients BMI is 62.4. Obesity increases the risk of apnea, CPAP pressure requirements and overall health risks especially cardiovascular and diabetes. Thus patient is advised to lose weight. * Change auto CPAP pressure to 9-13 cmH2O * Notify me if snoring with mask or feeling that the pressure is too much or too little * Attempt to lose weight * Call this office if any problems using CPAP * Return for follow up in 1-2 months, or sooner if concerns arise Counseling Topics: Spare mask, Weight loss health impact Follow up with Sleep Care in: 1-2 months Visit Type: In Office Time Spent with Patient (minutes): 21 Provider Statement: I spent 100% of the Face to Face Visit with the patient with greater than 50% spent counseling the patient and coordination of care.
[2023-09-08 11:25] VITALS: BP 126/88; O2SAT 96
== END 2023-09-08 10:51 | disposition home or self-care (01) ==
LOC: SC 10:50
PROVIDERS: ATTEND Nurse Practitioner Family
DX: G47.33 Obstructive sleep apnea (adult) (pediatric) (principal); E66.01 Morbid (severe) obesity due to excess calories; Z68.44 Body mass index [BMI] 60.0-69.9, adult
CPT/HCPCS: 99212; 99213

== ENCOUNTER 2023-09-27 07:30 | Outpatient (CLI) | payer MEDICAID, OTHER ==
[2023-09-27 11:37] LABS: BASOPHILS # (AUTO) 0.1 10^3/uL (0.0-0.1); EOSINOPHILS # (AUTO) 0.2 10^3/uL (0.0-0.7); HCT - HEMATOCRIT 41.2 % (37.0-47.0); HGB - HEMOGLOBIN 13.5 g/dL (12.0-16.0); LYMPHOCYTES # (AUTO) 1.3 10^3/uL (1.5-3.5); LYMPHOCYTES % (AUTO) 24.8 %; MEAN CORPUSCULAR HEMOGLOBIN 30.3 pg (27.0-31.0); MEAN CORPUSCULAR HGB CONC 32.8 g/dL (32.0-36.0); MEAN CORPUSCULAR VOLUME 92.6 fL (81.0-99.0); MEAN PLATELET VOLUME 10.7 fL (7.9-10.8); MONOCYTES # (AUTO) 0.5 10^3/uL (0.0-1.0); MONOCYTES % (AUTO) 9.3 %; NEUTROPHILS # (AUTO) 3.2 10^3/uL (1.5-6.6); NEUTROPHILS % (AUTO) 61.5 %; PLT - PLATELET COUNT 232 10^3/uL (130-450); RED BLOOD COUNT 4.45 10^6/uL (4.20-5.40); RED CELL DISTRIBUTION WIDTH 12.6 % (12.0-15.0); WHITE BLOOD COUNT 5.3 x10^3/uL (4.8-10.8)
[2023-09-27 13:03] LABS: ALBUMIN 4.2 g/dL (3.2-5.5); ALBUMIN/GLOBULIN RATIO 1.8 (1.0-2.2); BILIRUBIN,TOTAL 0.4 mg/dL (0.2-1.0); CALCIUM 9.9 mg/dL (8.5-10.3); POTASSIUM 3.6 mmol/L (3.5-4.5); TOTAL PROTEIN 6.6 g/dL (6.4-8.9)
== END 2023-09-27 07:45 | disposition home or self-care (01) ==
LOC: LAB.N 07:30
PROVIDERS: ATTEND Emergency Medicine
DX: K21.9 Gastro-esophageal reflux disease without esophagitis (principal)
CPT/HCPCS: 36415; 80053; 83690; 85025

== ENCOUNTER 2023-09-28 10:40 | Outpatient (CLI) | payer MEDICAID ==
[2023-09-28 17:50] LABS: BASOPHILS % (AUTO) 0.8 %; EOSINOPHILS # (AUTO) 0.1 10^3/uL (0.0-0.7); EOSINOPHILS % (AUTO) 2.2 %; HCT - HEMATOCRIT 44.1 % (37.0-47.0); HGB - HEMOGLOBIN 14.3 g/dL (12.0-16.0); LYMPHOCYTES # (AUTO) 1.1 10^3/uL (1.5-3.5); LYMPHOCYTES % (AUTO) 22.1 %; MEAN CORPUSCULAR HEMOGLOBIN 30.8 pg (27.0-31.0); MEAN CORPUSCULAR HGB CONC 32.4 g/dL (32.0-36.0); MEAN CORPUSCULAR VOLUME 94.8 fL (81.0-99.0); MEAN PLATELET VOLUME 10.8 fL (7.9-10.8); MONOCYTES # (AUTO) 0.4 10^3/uL (0.0-1.0); MONOCYTES % (AUTO) 8.6 %; NEUTROPHILS # (AUTO) 3.4 10^3/uL (1.5-6.6); NEUTROPHILS % (AUTO) 65.9 %; PLT - PLATELET COUNT 246 10^3/uL (130-450); RED BLOOD COUNT 4.65 10^6/uL (4.20-5.40); RED CELL DISTRIBUTION WIDTH 12.8 % (12.0-15.0); WHITE BLOOD COUNT 5.1 x10^3/uL (4.8-10.8)
[2023-09-28 18:04] LABS: ALBUMIN 4.3 g/dL (3.2-5.5); ALBUMIN/GLOBULIN RATIO 1.9 (1.0-2.2); BILIRUBIN,TOTAL 0.3 mg/dL (0.2-1.0); CALCIUM 9.5 mg/dL (8.5-10.3); POTASSIUM 4.2 mmol/L (3.5-4.5); TOTAL PROTEIN 6.6 g/dL (6.4-8.9)
[2023-09-28 19:54] LABS: THYROID STIMULATING HORMONE 1.38 uIU/mL (0.34-5.60)
== END 2023-09-28 10:41 | disposition home or self-care (01) ==
LOC: LAB.N 10:40
PROVIDERS: ATTEND Nurse Practitioner
DX: F25.1 Schizoaffective disorder, depressive type (principal); R41.0 Disorientation, unspecified
CPT/HCPCS: 36415; 80053; 84443; 85025

== ENCOUNTER 2023-10-06 08:59 | Outpatient (CLI) | payer MEDICAID, OTHER ==
--- NOTE | 2023-10-06 09:22 | Sleep Patient Instructions ---
Sleep Center Visit Summary - Patient Visit Information Reason for Visit: 1 month follow-up - Patient Instructions Additional Instructions: You were here for follow up of CPAP therapy. You will be continued on CPAP therapy with pressure at 9-13 cmH2O. You should follow up with sleep care in 3 months. You may contact us sooner for any questions or concerns. - Clinic Information Contact: [facility] [address] [place] [address] [email or web address] T: [phone]
--- NOTE | 2023-10-06 09:25 | SLEEP CARE CONSULTATION ---
Information from patient questionnaire entered by Arjun Eng. I have reviewed and concur with the information entered by Arjun Eng. This document represents the service I personally performed and the decisions made by , Terese Hernandez ARNP. History of Present Illness Service Date and Time: 10/06/2023 0859 Previous diagnosis: Severe, Obstructive Sleep Apnea-Hypopnea Syndrome AHI: 30.8 (05/12/23) Reason for follow up: one month (F/U) Accompanied by: Spouse Equipment type: CPAP (RESMED Airsense 11, s/u 07/2023) Equipment obtained from: Other ([facility]; getting supplies) Mask style: Full face Backup mask available: No Last cushion change: 1.5 weeks Prior sleep studies: Yes Year and Where: HERE 1-3YRS AGO Type of Sleep Study: Polysomnography (COMPLETED 05/12/23) HPI additional information: IRASEMA TOSCANO was diagnosed to have severe, AHI 30.8, obstructive sleep apnea- hypopnea syndrome and returned today for CPAP therapy one month follow-up. Sleep Study - Results Type of Sleep Study: Polysomnography (COMPLETED 05/12/23) Prior sleep studies: Yes Year and Where: HERE 1-3YRS AGO CPAP Compliance Data - Data Reviewed with Patient Average duration of nightly device use: 8 HRS 9 MINS Compliance rate %: 100 (09/04/23-10/03/23; 30/30 days used) Current pressure setting (cmH2O): 9-13 Average residual AHI: 0.3 Central apnea: 0 Obstructive apnea: 0.3 Average large leak: 0.3 L/min Subjective Patient concerns: reports: other (mask moves when side sleeping, occasionally). denies: aerophagia, mask discomfort, air blowing in eyes, mask leak noise, condensation in mask/hose, nasal congestion, dry mouth, nose, throat, epistaxis Observed to snore while using device: No Current pressure setting perceived as: comfortable On therapy, patient: reports: sleeping better, awakening more refreshed, being more awake and alert during the day, more rested overall. denies: drowsiness while driving Initial [place] Sleepiness Scale score: 15 (04/05/23) Current [place] Sleepiness Scale score: 8 (10/06/23) Allergies and Home Medications Known drug allergies: Yes (as listed) Drug allergies reviewed: Yes Home medication list reviewed: Yes (no changes) Allergy and home medication list: Allergies metformin Allergy (Verified 10/04/23 11:56) Unknown hydrocodone bitartrate * [From Vicodin] Adverse Reaction (Intermediate, Verified 10/04/23 11:56) Hallucinations topiramate [From Topamax] Adverse Reaction (Verified 10/04/23 11:56) Unknown lethargy Review of Systems Review of systems same as previous: Yes (NO CHANGE) Physical Exam Vital signs obtained and entered by: ARJUN Chen MA Blood Pressure: 142/82 (LEFT ARM) Cuff size: long Heart Rate: 63 O2 Saturation: 100 Height: 5 ft 6 in Weight: 383 lb 12.8 oz Weight change since last visit: 4 lb loss Body Mass Index: 61.9 BMI Classification: Morbidly Obese Impression and Plan 1. Obstructive Sleep Apnea-Hypopnea Syndrome, severe, with good treatment compliance and good apnea control. On CPAP therapy, the patient has better sleep quality and is more rested overall. She has significant improvement of her sleep apnea and is satisfied with current therapy. She occasionally has mask dislodgement but overall is not having issues with her mask. I will have her follow up in 3 months. Patient's apnea severity and rationale for treatment to reduce apnea, improve sleep quality and reduce cardiovascular and cerebrovascular events was reviewed. I also reviewed the benefit of consistent device use of CPAP for pre-diabetes, depression, anxiety, mood disorder (PTSD) and attention deficit. 2. Obesity, unspecified. Currently patients BMI is 61.9. She has lost weight. Obesity increases the risk of apnea, CPAP pressure requirements and overall health risks especially cardiovascular and diabetes. Thus patient is advised to continue to try to lose weight. * Continue auto CPAP pressure at 9-13 cmH2O * Notify me if snoring with mask or feeling that the pressure is too much or too little * Attempt to lose weight * Call this office if any problems using CPAP * Return for follow up in 3 months, or sooner if concerns arise Counseling Topics: Weight loss health impact Follow up with Sleep Care in: 3 months Visit Type: In Office Time Spent with Patient (minutes): 20 Provider Statement: I spent 100% of the Face to Face Visit with the patient with greater than 50% spent counseling the patient and coordination of care.
[2023-10-06 09:33] VITALS: BP 142/82; O2SAT 100
== END 2023-10-06 09:00 | disposition home or self-care (01) ==
LOC: SC 08:59
PROVIDERS: ATTEND Nurse Practitioner Family
DX: G47.33 Obstructive sleep apnea (adult) (pediatric) (principal); E66.01 Morbid (severe) obesity due to excess calories; Z68.44 Body mass index [BMI] 60.0-69.9, adult
CPT/HCPCS: 99212; 99213

== ENCOUNTER 2023-11-13 06:40 | Outpatient (CLI) | payer MEDICAID ==
--- NOTE | 2023-11-13 10:36 | Ultrasound Report ---
PROCEDURE: Pelvic w/Transvaginal INDICATIONS: PELVIC PAIN TECHNIQUE: Real-time scanning was performed of the pelvic organs, with image documentation. Additional endovagi nal scanning was necessary due to incomplete visualization of the adnexal and endometrial structures by transabdominal scanning. COMPARISON: 11/13/2017 FINDINGS: Uterus: Uterus is anteverted and normal in size at 9.2 x 4.4 x 5.2 cm. The myometrium is homogeneou s. The endometrium measures 5 mm in combined thickness. IUD within the lower uterine segment. Ovaries: Right ovary not visualized. Left ovary measures 3.9 x 3.3 x 3.5 cm, volume of 24 mm. Dominan t follicle present. Other: No pathologic free abdominal or pelvic fluid. IMPRESSION: IUD within the mid to lower uterine segment. Recommend advancement. Reviewed by: Ashish Guerrier MD on 11/13/2023 10:35 AM PDT Approved by: Ashish Guerrier MD on 11/13/2023 10:35 AM PDT Station ID: [id number]
== END 2023-11-13 06:41 | disposition home or self-care (01) ==
LOC: DI 06:40
PROVIDERS: ATTEND Nurse Practitioner
DX: R10.2 Pelvic and perineal pain (principal); Z97.5 Presence of (intrauterine) contraceptive device

== ENCOUNTER 2023-11-18 09:48 | Outpatient (CLI) | payer MEDICAID | END 2023-11-18 23:59 | disposition critical access hospital (66) | LOC: EMS 09:48 | DX: R55 Syncope and collapse (principal); R53.1 Weakness; R42 Dizziness and giddiness | CPT/HCPCS: A0425; A0429; A0999 ==

== ENCOUNTER 2023-11-18 10:08 | Emergency (ER) | payer MEDICAID ==
--- NOTE | 2023-11-18 10:18 | ED Physician Documentation ---
PD HPI SYNCOPE - Stated complaint Stated Complaint: SYNCOPE - History obtained from History obtained from: Patient, EMS - History of Present Illness Witnessed: Witnessed Timing - onset: Today Duration: Seconds Preceding symptoms: Vision changes, Light headed, Generalized weakness Contributing factors: Decreased PO intake Injury occurred: None Similar symptoms before: Diagnosis (vasovagal syncpe) Recently seen: Not recently seen - Additional information Additional information: 38-year-old female with a prior history of vasovagal syncope has had 3 syncopal episodes this week and today an episode was witnessed by her partner while she was sitting on the couch. The patient did not have seizure or loss of bowel or bladder. She is on spironolactone for hirsutism and she has been on this for some time. She has had episodes of syncope for some time. 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 HEENT: Tonsil/Adenoidectomy - Present Medications Home Medications: Ambulatory Orders Medication Instructions Recorded Confirmed Levothyroxine [Synthroid] 88 mcg PO DAILY 08/12/13 11/18/23 lamoTRIgine [Lamictal Xr] 200 mg PO HS 09/06/16 11/18/23 Cetirizine [ZyrTEC] 10 mg ORAL DAILY 04/06/23 11/18/23 Fluoxetine HCl [Prozac] 20 mg ORAL DAILY PM 04/06/23 11/18/23 Gabapentin [Neurontin] 300 mg ORAL TID 04/06/23 11/18/23 diazePAM [Diazepam] 4 mg ORAL DAILY 04/06/23 11/18/23 Diazepam [Valium] 7 mg PO DAILY PM 06/06/23 11/18/23 Naltrexone HCl 50 mg PO DAILY 11/18/23 11/18/23 Omeprazole 20 mg PO DAILY 11/18/23 11/18/23 Spironolactone [Aldactone] 50 mg PO DAILY 11/18/23 11/18/23 Ziprasidone [Geodon] 40 mg ORAL DAILY 11/18/23 11/18/23 Ziprasidone [Geodon] 60 mg ORAL DAILY PM 11/18/23 11/18/23 - Allergies Allergies/Adverse Reactions: Allergies Allergy/AdvReac Type Severity Reaction Status Date / Time metformin Allergy Unknown Verified 11/18/23 10:25 hydrocodone bitartrate * AdvReac Intermediate Hallucinati Verified 11/18/23 10:25 [From Vicodin] ons topiramate [From Topamax] AdvReac Unknown Verified 11/18/23 10:25 - Social History Does the pt smoke?: No Smoking Status: Never smoker Does the pt drink ETOH?: No Does the pt have substance abuse?: No - Immunizations Immunizations are current?: No Immunizations: TDAP >10years/unknown - POLST Patient has POLST: No PD ED PE NORMAL - Vitals Vital signs reviewed: Yes (normal ) - General General: Alert and oriented X 3, No acute distress, Well developed/nourished - HEENT HEENT: Atraumatic, PERRL, EOMI - Neck Neck: Supple, no meningeal sign, No bony TTP - Cardiac Cardiac: RRR, No murmur - Respiratory Respiratory: No respiratory distress, Clear bilaterally - Abdomen Abdomen: Normal bowel sounds, Soft, Non tender, Non distended, No organomegaly - Back Back: No CVA TTP, No spinal TTP - Derm Derm: Normal color, Warm and dry, No rash - Extremities Extremities: No deformity, No edema - Neuro Neuro: Alert and oriented X 3, 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0 Neut # (Auto) 5.0 Lymph # (Auto) 1.4 L [place] # (Auto) 0.8 Eos # (Auto) 0.2 Baso # (Auto) 0.1 Absolute Nucleated RBC 0.00 Nucleated RBC % 0.0 Sodium 136 Potassium 4.6 H Chloride 103 Carbon Dioxide 29 Anion Gap 4.0 L BUN 12 Creatinine 1.1 Estimated GFR (MDRD) 56 L Glucose 94 Calcium 9.8 Total Bilirubin 0.4 AST 22 ALT 26 Alkaline Phosphatase 62 Total Protein 7.0 Albumin 4.3 Globulin 2.7 Albumin/Globulin Ratio 1.6 Lipase 40 Urine Color YELLOW Urine Clarity CLEAR Urine pH 7.5 Ur Specific [place] <=1.005 Urine Protein NEGATIVE Urine Glucose (UA) NEGATIVE Urine Ketones NEGATIVE Urine Occult Blood NEGATIVE Urine Nitrite NEGATIVE Urine Bilirubin NEGATIVE Urine Urobilinogen 0.2 (NORMAL) Ur Leukocyte Esterase NEGATIVE Ur Microscopic Review NOT INDICATED Urine Culture Comments NOT INDICATED Urine HCG, Qual NEGATIVE Procedures - IVC sono (time) 1010 Bedside IVC sono: IVC measures (cm), Dehydration (est 2 liter deficit) PD Medical Decision Making - ED course Complexity details: reviewed results, re-evaluated patient, considered differential, d/w patient, d/w family Reviewed Lab Results: We reviewed a complete blood count showing a normal white blood cell count normal hemoglobin hematocrit and platelets chemistries showed an elevated potassium of 4.6 otherwise electrolytes normal kidney and liver function normal urinalysis unremarkable with a specific gravity 1.005 and negative for hCG. I interpret these blood test indicate the patient likely has a the degree of dehydration she is demonstrating based on her use of spironolactone with an mild elevation in the potassium and a low specific gravity of the urine despite evidence of dehydration on interrogation of the inferior vena cava with POCUS. Departure - Departure Disposition: 01 Home, Self Care Clinical Impression: Syncope due to orthostatic hypotension, Dehydration Condition: Stable Instructions: ED Dehydration, ED Syncope Vasovagal Follow-Up: Jillian Cash PA [Primary Care Provider] - Comments: Edith, today it looks like you were significantly dehydrated. This is likely due to your use of spironolactone. We have been administered intravenous and oral fluids and the expectation with this is, that you will feel improved and episodes of fainting less likely. My recommendation is to discontinue the use of the spironolactone for the time being and follow-up with your primary care doctor to consider an alternative agent or sporadic use of this agent if it is helping for the hirsutism. Forms: PCP List Discharge Date/Time: 11/18/23 12:02
[2023-11-18 10:29] LABS: BASOPHILS # (AUTO) 0.1 10^3/uL (0.0-0.1); BASOPHILS % (AUTO) 0.8 %; EOSINOPHILS # (AUTO) 0.2 10^3/uL (0.0-0.7); EOSINOPHILS % (AUTO) 2.5 %; HCT - HEMATOCRIT 41.8 % (37.0-47.0); HGB - HEMOGLOBIN 13.9 g/dL (12.0-16.0); LYMPHOCYTES # (AUTO) 1.4 10^3/uL (1.5-3.5); LYMPHOCYTES % (AUTO) 18.6 %; MEAN CORPUSCULAR HGB CONC 33.3 g/dL (32.0-36.0); MEAN CORPUSCULAR VOLUME 93.1 fL (81.0-99.0); MONOCYTES # (AUTO) 0.8 10^3/uL (0.0-1.0); MONOCYTES % (AUTO) 10.9 %; NEUTROPHILS % (AUTO) 66.5 %; PLT - PLATELET COUNT 228 10^3/uL (130-450); RED BLOOD COUNT 4.49 10^6/uL (4.20-5.40); RED CELL DISTRIBUTION WIDTH 13.1 % (12.0-15.0); WHITE BLOOD COUNT 7.5 x10^3/uL (4.8-10.8)
[2023-11-18] MEDS: SODIUM CHLORIDE 0.9% 1,000 ML IV STA (10:33)
[2023-11-18 10:45] LABS: ALBUMIN 4.3 g/dL (3.2-5.5); ALBUMIN/GLOBULIN RATIO 1.6 (1.0-2.2); BILIRUBIN,TOTAL 0.4 mg/dL (0.2-1.0); CALCIUM 9.8 mg/dL (8.5-10.3); CREATININE 1.1 mg/dL (0.6-1.3); POTASSIUM 4.6 mmol/L (3.5-4.5)
[2023-11-18 11:20] LABS: BILIRUBIN,URINE NEGATIVE (NEGATIVE); GLUCOSE, URINE (UA) NEGATIVE (NEGATIVE); KETONES,URINE (UA) NEGATIVE (NEGATIVE); LEUKOCYTE ESTERASE, URINE NEGATIVE (NEGATIVE); NITRITE,URINE NEGATIVE (NEGATIVE); OCCULT BLOOD,URINE NEGATIVE (NEGATIVE); PH,URINE 7.5 PH (5.0-7.5); PROTEIN,URINE NEGATIVE (NEGATIVE); UROBILINOGEN,URINE 0.2 (NORMAL) E.U./dL (NORMAL)
[2023-11-18 11:23] LABS: CLARITY,URINE CLEAR (CLEAR); HCG UR QUAL NEGATIVE
[2023-11-18 12:11] VITALS: BP 143/101; O2SAT 97
== END 2023-11-18 12:02 | disposition home or self-care (01) ==
LOC: EDUNIT# → SUPCPDRO 10:08 → ED 10:08
DX: I95.1 Orthostatic hypotension (principal); E86.0 Dehydration; E03.9 Hypothyroidism, unspecified; Z79.899 Other long term (current) drug therapy
CPT/HCPCS: 36415; 80053; 81001; 81003; 81025; 83690; 85025; 87086; 93005; 96360; 99283

== ENCOUNTER 2023-12-24 17:17 | Outpatient (CLI) | payer MEDICAID | END 2023-12-24 23:59 | disposition critical access hospital (66) | LOC: EMS 17:17 | DX: R55 Syncope and collapse (principal) | CPT/HCPCS: A0425; A0429; A0999 ==

== ENCOUNTER 2023-12-24 17:38 | Emergency (ER) | payer MEDICAID ==
--- NOTE | 2023-12-24 17:48 | ED Physician Documentation ---
PD HPI SYNCOPE - Stated complaint Stated Complaint: SYNCOPAL EPISODES - Chief complaint Chief Complaint: Neuro - History obtained from History obtained from: Patient, EMS - History of Present Illness Pain level max: 0 Pain level now: 0 - Additional information Additional information: 38-year-old female states that she has had "fainting episodes" increasingly over the past several weeks to months. She states she has been seen by her PCP and they are planning to do a Holter monitor on her. She states that she had 3 episodes today. Patient states that she does not lose consciousness during these episodes but feels like her head becomes heavy and that she cannot open her eyes. She states these episodes have been going on for many years. No changes to her medications. No fevers. No chills. No chest pain, no shortness of breath, no nausea, no vomiting. Nothing makes it better or worse. She states that the said when she passed out when she was younger that it was due to "low blood pressure". 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 HEENT: Tonsil/Adenoidectomy - Present Medications Home Medications: Ambulatory Orders Medication Instructions Recorded Confirmed Levothyroxine [Synthroid] 88 mcg PO DAILY 08/12/13 11/18/23 lamoTRIgine [Lamictal Xr] 200 mg PO HS 09/06/16 11/18/23 Cetirizine [ZyrTEC] 10 mg ORAL DAILY 04/06/23 11/18/23 Fluoxetine HCl [Prozac] 20 mg ORAL DAILY PM 04/06/23 11/18/23 Gabapentin [Neurontin] 300 mg ORAL TID 04/06/23 11/18/23 diazePAM [Diazepam] 4 mg ORAL DAILY 04/06/23 11/18/23 Diazepam [Valium] 7 mg PO DAILY PM 06/06/23 11/18/23 Naltrexone HCl 50 mg PO DAILY 11/18/23 11/18/23 Omeprazole 20 mg PO DAILY 11/18/23 11/18/23 Ziprasidone [Geodon] 40 mg ORAL DAILY 11/18/23 11/18/23 Ziprasidone [Geodon] 60 mg ORAL DAILY PM 11/18/23 11/18/23 Drospir/Eth Estra/Levomefol Ca 1 each PO DAILY 12/07/23 12/07/23 [Beyaz 28 Tablet] - Allergies Allergies/Adverse Reactions: Allergies Allergy/AdvReac Type Severity Reaction Status Date / Time metformin Allergy Unknown Verified 12/24/23 17:47 hydrocodone bitartrate * AdvReac Intermediate Hallucinati Verified 12/24/23 17:47 [From Vicodin] ons topiramate [From Topamax] AdvReac Unknown Verified 12/24/23 17:47 - Social History Does the pt smoke?: No Smoking Status: Never smoker Does the pt drink ETOH?: No Does the pt have substance abuse?: No - Immunizations Immunizations are current?: No Immunizations: TDAP >10years/unknown - POLST Patient has POLST: No PD ED PE NORMAL - Vitals Vital signs reviewed: Yes - General General: Alert and oriented X 3, No acute distress, Well developed/nourished - HEENT HEENT: Atraumatic, PERRL, Moist mucous membranes, Pharynx benign - Neck Neck: Supple, no meningeal sign - Cardiac Cardiac: RRR, Strong equal pulses - Respiratory Respiratory: No respiratory distress, Clear bilaterally - Abdomen Abdomen: Soft, Non tender, Non distended - Derm Derm: Warm and dry - Extremities Extremities: No calf tenderness / cord - Neuro Neuro: Alert and oriented X 3, shirt marker 2-12 intact, No motor deficit, No sensory deficit, Normal speech Eye Opening: Spontaneous Motor: Obeys Commands Verbal: Oriented GCS Score: 15 - Psych Psych: Normal mood, Normal affect Results - Vitals Vitals: Vital Signs - 24 hr 12/24/23 12/24/23 17:44 19:42 Temperature 36.3 C L 36.8 C Heart Rate 63 54 L Respiratory 18 18 Rate Blood Pressure 140/82 H 158/100 H O2 Saturation 100 98 Oxygen O2 Source Room air - EKG (time done) 1748 EKG releavant findings:: EKG personally interpreted by author of this note. Relevant findings are: Rate: Rate (enter#) (62) Rhythm: NSR [place]: Normal Intervals: Normal GA QRS: Normal Ischemia: Normal ST segments - Labs Labs: Laboratory Tests 12/24/23 12/24/23 17:53 18:15 WBC 8.3 RBC 4.04 L Hgb 12.9 Hct 37.2 MCV 92.1 MCH 31.9 H MCHC 34.7 RDW 12.9 Plt Count 212 MPV 9.8 Neut # (Auto) 5.2 Lymph # (Auto) 2.0 [place] # (Auto) 0.7 Eos # (Auto) 0.2 Baso # (Auto) 0.1 Absolute Nucleated RBC 0.00 Nucleated RBC % 0.0 Sodium 138 Potassium 3.9 Chloride 103 Carbon Dioxide 28 Anion Gap 7.0 BUN 12 Creatinine 0.9 Estimated GFR (MDRD) 70 L Glucose 79 Calcium 9.4 Total Bilirubin 0.3 AST 14 ALT 19 Alkaline Phosphatase 53 Troponin I High Sens < 2.3 L Total Protein 6.5 Albumin 4.0 Globulin 2.5 Albumin/Globulin Ratio 1.6 Lipase 34 - Rads (name of study) cxr Relevant Findings:: Final report received, See rad report PD Medical Decision Making - ED course Complexity details: reviewed results, re-evaluated patient, considered differential (No ST elevation [place], no aortic dissection, no PE, no tension pneumothorax, no aortic aneurysm), d/w patient ED course: No acute findings on chest x-ray or EKG. No significant lab abnormalities. No tachycardia. No hypotension. Patient asymptomatic in the emergency department. No arrhythmias on telemetry. Unclear etiology of her near syncopal events at home. She does not ever lose consciousness fully. She is scheduled to have a Zio patch with her doctor, likely placed this week. GCS 15. No focal neurological deficits. NIH stroke scale 0. Will have her follow-up with her doctor for further care. Patient counseled regarding signs and symptoms for which I believe and urgent re-evaluation would be necessary. Patient with good understanding of and agreement to plan and is comfortable going home at this time This document was made in part using voice recognition software. While efforts are made to proofread this document, sound alike and grammatical errors may occur. Departure - Departure Disposition: Home, Self Care Clinical Impression: Syncope Qualifiers: Syncope type: unspecified Qualified Code(s): R55 - Syncope and collapse Condition: Good Instructions: ED Fainting Unkn Cause Follow-Up: your,doctor tomorrow [Other] Comments: Please contact your doctor tomorrow to ask about the Zio patch or heart monitor to see when you are going to start this as this will give information about your syncopal episodes. Please continue your current medications at home and follow-up with your doctor for further care. Return if you worsen Forms: PCP List Discharge Date/Time: 12/24/23 19:43
--- NOTE | 2023-12-24 18:03 | XRAY Report ---
PROCEDURE: Chest 1V INDICATIONS: syncope TECHNIQUE: One view of the chest was acquired. COMPARISON: 12/27/2018 FINDINGS: Surgical changes and devices: None. Lungs and pleura: An incomplete inspiratory result is noted, with low lung volumes and crowding of t he vascular markings. No focal infiltrates are seen. No large pneumothorax or large pleural effusion can be seen. Mediastinum: Mediastinal contours appear normal. Heart size is normal. Bones and chest wall: No suspicious bony lesions. Overlying soft tissues appear unremarkable. IMPRESSION: Low lung volumes, without an acute cardiopulmonary abnormality seen. Reviewed by: Austin Streeter MD on 12/24/2023 5:02 PM LATISHA Approved by: Austin Streeter MD on 12/24/2023 5:02 PM LATISHA Station ID: [id number]
[2023-12-24 18:25] LABS: BASOPHILS # (AUTO) 0.1 10^3/uL (0.0-0.1); BASOPHILS % (AUTO) 0.7 %; EOSINOPHILS # (AUTO) 0.2 10^3/uL (0.0-0.7); EOSINOPHILS % (AUTO) 2.8 %; HCT - HEMATOCRIT 37.2 % (37.0-47.0); HGB - HEMOGLOBIN 12.9 g/dL (12.0-16.0); LYMPHOCYTES % (AUTO) 23.8 %; MEAN CORPUSCULAR HEMOGLOBIN 31.9 pg (27.0-31.0); MEAN CORPUSCULAR HGB CONC 34.7 g/dL (32.0-36.0); MEAN CORPUSCULAR VOLUME 92.1 fL (81.0-99.0); MEAN PLATELET VOLUME 9.8 fL (7.9-10.8); MONOCYTES # (AUTO) 0.7 10^3/uL (0.0-1.0); MONOCYTES % (AUTO) 8.6 %; NEUTROPHILS # (AUTO) 5.2 10^3/uL (1.5-6.6); NEUTROPHILS % (AUTO) 63.5 %; PLT - PLATELET COUNT 212 10^3/uL (130-450); RED BLOOD COUNT 4.04 10^6/uL (4.20-5.40); RED CELL DISTRIBUTION WIDTH 12.9 % (12.0-15.0); WHITE BLOOD COUNT 8.3 x10^3/uL (4.8-10.8)
[2023-12-24 18:27] LABS: ALBUMIN/GLOBULIN RATIO 1.6 (1.0-2.2); ALKALINE PHOSPHATASE 53 IU/L (42-121); ALT ALANINE AMINOTRANSFERASE 19 IU/L (10-60); AST ASPARTATE AMINOTRANSFERASE 14 IU/L (10-42); BILIRUBIN,TOTAL 0.3 mg/dL (0.2-1.0); BUN - BLOOD UREA NITROGEN 12 mg/dL (6-20); CALCIUM 9.4 mg/dL (8.5-10.3); CARBON DIOXIDE - CO2 28 mmol/L (21-32); CHLORIDE 103 mmol/L (101-111); CREATININE 0.9 mg/dL (0.6-1.3); GFR - MDRD 70 (>89); GLUCOSE 79 mg/dL (74-104); LIPASE 34 U/L (11-82); POTASSIUM 3.9 mmol/L (3.5-4.5); SODIUM 138 mmol/L (135-145); TOTAL PROTEIN 6.5 g/dL (6.4-8.9)
[2023-12-24 18:29] LABS: TROPONIN I HIGH SENSITIVITY < 2.3 ng/L (2.3-14.8)
[2023-12-24 19:50] VITALS: BP 158/100; O2SAT 98
== END 2023-12-24 19:43 | disposition home or self-care (01) ==
LOC: EDUNIT# → ED 17:38
DX: R55 Syncope and collapse (principal); E03.9 Hypothyroidism, unspecified; Z79.899 Other long term (current) drug therapy
CPT/HCPCS: 36415; 80053; 83690; 84484; 85025; 93005; 99284

== ENCOUNTER 2024-01-05 12:47 | Outpatient (CLI) | payer MEDICAID, OTHER ==
--- NOTE | 2024-01-05 13:15 | Sleep Patient Instructions ---
Sleep Center Visit Summary - Patient Visit Information Reason for Visit: 3 month follow up - Patient Instructions Additional Instructions: You were here for follow up of CPAP therapy. You will be continued on CPAP therapy with pressure at 10-15 cmH2O. You should follow up with sleep care in 6 months. You may contact us sooner for any questions or concerns. - Clinic Information Contact: [facility] [address] [place] [address] [email or web address] T: [phone]
--- NOTE | 2024-01-05 13:21 | SLEEP CARE CONSULTATION ---
Information from patient questionnaire entered by Chaparrita Eng. I have reviewed and concur with the information entered by Chaparrita Eng. This document represents the service I personally performed and the decisions made by , Terese Hernandez ARNP. History of Present Illness Service Date and Time: 01/05/2024 1247 Previous diagnosis: Severe, Obstructive Sleep Apnea-Hypopnea Syndrome AHI: 30.8 Reason for follow up: three month (F/U) Equipment type: CPAP (RESMED) Equipment obtained from: Other ([facility]; getting supplies) Mask style: Full face (Mita) Backup mask available: No Last cushion change: 1 week Prior sleep studies: Yes Year and Where: HERE 1-3YRS AGO Type of Sleep Study: Polysomnography (COMPLETED 05/12/23) HPI additional information: IRASEMA TOSCANO was diagnosed to have severe, AHI 30.8, obstructive sleep apnea- hypopnea syndrome and returned today for CPAP therapy three month follow-up. Sleep Study - Results Type of Sleep Study: Polysomnography (COMPLETED 05/12/23) Prior sleep studies: Yes Year and Where: HERE 1-3YRS AGO CPAP Compliance Data - Data Reviewed with Patient Average duration of nightly device use: 8 HRS 47 MINS Compliance rate %: 100 (10/05/23-01/02/24; 90/90 days used) Current pressure setting (cmH2O): 10-15 Average residual AHI: 0.4 Central apnea: 0 Obstructive apnea: 0.3 Hypopnea: 0 Average large leak: 0 L/min Compliance data discussion: She says she will still wake up about 3 AM and has difficulty getting back to sleep. Started gradually over last couple months. Subjective Patient concerns: reports: mask leak noise, other (feel like I can't breathe with mask on sometimes). denies: aerophagia, mask discomfort, air blowing in eyes, condensation in mask/hose, nasal congestion, dry mouth, nose, throat, epistaxis Observed to snore while using device: No Current pressure setting perceived as: too low (at beginning of night) On therapy, patient: reports: sleeping better, awakening more refreshed, being more awake and alert during the day, more rested overall. denies: drowsiness while driving Initial [place] Sleepiness Scale score: 15 (04/05/23) Current [place] Sleepiness Scale score: 13 (01/05/24) Allergies and Home Medications Known drug allergies: Yes (as listed) Drug allergies reviewed: Yes Home medication list reviewed: Yes (updated in EMR) Allergy and home medication list: Allergies metformin Allergy (Verified 01/03/24 11:08) Unknown hydrocodone bitartrate * [From Vicodin] Adverse Reaction (Intermediate, Verified 01/03/24 11:08) Hallucinations topiramate [From Topamax] Adverse Reaction (Verified 01/03/24 11:08) Unknown lethargy Review of Systems Review of systems same as previous: No (FAINTING, DIZZINESS) Physical Exam Vital signs obtained and entered by: CHAPARRITA Chen MA Blood Pressure: 137/90 (RIGHT ARM) Cuff size: long Heart Rate: 72 O2 Saturation: 94 Height: 5 ft 6 in Weight: 391 lb 12.8 oz Body Mass Index: 63.2 BMI Classification: Morbidly Obese Impression and Plan 1. Obstructive Sleep Apnea-Hypopnea Syndrome, severe, with good treatment compliance and good apnea control. On CPAP therapy, the patient has better sleep quality and is more rested overall. She has significant improvement of her sleep apnea and is satisfied with current CPAP therapy. She does feel like the pressure could be a little bit higher when she first puts the mask on and I will adjust her ramp starting pressure to 5 cm H2O. She says she still wakes up about 3 in the morning and has real difficulty returning to sleep. Many times she just gets up. She is averaging about 5 or so hours a night. She recently has increased stress because she lost her job because of her mental health issues. Her is trying to get a job right now to support them. She is trying to get disability. Patient's apnea severity and rationale for treatment to reduce apnea, improve sleep quality and reduce cardiovascular and cerebrovascular events was reviewed. I also reviewed the benefit of consistent device use of CPAP for pre-diabetes, depression/anxiety, mood disorder (PTSD), attention deficit. 2. Obesity, unspecified. Currently patients BMI is 63.2. Obesity increases the risk of apnea, CPAP pressure requirements and overall health risks especially cardiovascular and diabetes. Thus patient is advised to lose weight. * Continue auto CPAP pressure at 10-15 cmH2O * Notify me if snoring with mask or feeling that the pressure is too much or too little * Attempt to lose weight * Call this office if any problems using CPAP * Return for follow up in 6 months, or sooner if concerns arise Counseling Topics: Spare mask, Weight loss health impact Follow up with Sleep Care in: 6 months Visit Type: In Office Time Spent with Patient (minutes): 21 Provider Statement: I spent 100% of the Face to Face Visit with the patient with greater than 50% spent counseling the patient and coordination of care.
[2024-01-05 13:25] VITALS: BP 137/90; O2SAT 94
== END 2024-01-05 12:48 | disposition home or self-care (01) ==
LOC: SC 12:47
PROVIDERS: ATTEND Nurse Practitioner Family
DX: G47.33 Obstructive sleep apnea (adult) (pediatric) (principal); E66.01 Morbid (severe) obesity due to excess calories; Z68.44 Body mass index [BMI] 60.0-69.9, adult
CPT/HCPCS: 99212; 99213

== ENCOUNTER 2024-01-23 15:18 | Emergency (ER) | payer MEDICAID ==
[2024-01-23 15:56] LABS: BASOPHILS # (AUTO) 0.1 10^3/uL (0.0-0.1); BASOPHILS % (AUTO) 0.8 %; EOSINOPHILS # (AUTO) 0.2 10^3/uL (0.0-0.7); EOSINOPHILS % (AUTO) 2.4 %; HGB - HEMOGLOBIN 13.3 g/dL (12.0-16.0); LYMPHOCYTES # (AUTO) 1.8 10^3/uL (1.5-3.5); LYMPHOCYTES % (AUTO) 25.8 %; MEAN CORPUSCULAR HEMOGLOBIN 31.7 pg (27.0-31.0); MEAN CORPUSCULAR HGB CONC 34.1 g/dL (32.0-36.0); MEAN CORPUSCULAR VOLUME 93.1 fL (81.0-99.0); MEAN PLATELET VOLUME 9.6 fL (7.9-10.8); MONOCYTES # (AUTO) 0.7 10^3/uL (0.0-1.0); MONOCYTES % (AUTO) 9.2 %; NEUTROPHILS # (AUTO) 4.4 10^3/uL (1.5-6.6); NEUTROPHILS % (AUTO) 61.5 %; PLT - PLATELET COUNT 219 10^3/uL (130-450); RED BLOOD COUNT 4.19 10^6/uL (4.20-5.40); RED CELL DISTRIBUTION WIDTH 12.5 % (12.0-15.0); WHITE BLOOD COUNT 7.1 x10^3/uL (4.8-10.8)
[2024-01-23 16:10] LABS: ALBUMIN 3.9 g/dL (3.2-5.5); ALBUMIN/GLOBULIN RATIO 1.9 (1.0-2.2); ALKALINE PHOSPHATASE 55 IU/L (42-121); ALT ALANINE AMINOTRANSFERASE 30 IU/L (10-60); AST ASPARTATE AMINOTRANSFERASE 19 IU/L (10-42); BILIRUBIN,TOTAL 0.4 mg/dL (0.2-1.0); BUN - BLOOD UREA NITROGEN 13 mg/dL (6-20); CALCIUM 9.3 mg/dL (8.5-10.3); CARBON DIOXIDE - CO2 30 mmol/L (21-32); CHLORIDE 102 mmol/L (101-111); CREATININE 0.9 mg/dL (0.6-1.3); GFR - MDRD 70 (>89); GLUCOSE 91 mg/dL (74-104); LIPASE 28 U/L (11-82); SODIUM 137 mmol/L (135-145)
[2024-01-23 16:29] LABS: TROPONIN I HIGH SENSITIVITY < 2.3 ng/L (2.3-14.8)
--- NOTE | 2024-01-23 17:23 | ED Physician Documentation ---
History of Present Illness - Stated complaint Stated Complaint: LIGHTHEADED, N - Chief complaint Chief Complaint: General - Additonal information Additional information: 38-year-old female with complex psychiatric history, tremors, syncopal episodes, hypothyroidism, PTSD, schizoaffective disorder with bipolar presents emergency department for complaints of possible dehydration. Patient is feeling nauseous and slightly dizzy she said that she might have passed out a few times but she was sitting upright in a chair and her head was tipped over she did not follow the chair and just did not respond to her friend for a couple moments. She has had some recent psych medication changes was recently hospitalized at [facility] for psychiatric issues has overall been doing quite well since she discharged and is being followed closely by psychiatrist. She said that she has not been eating as much as she normally does today because of the heat today. 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 HEENT: Tonsil/Adenoidectomy - Present Medications Home Medications: Ambulatory Orders Medication Instructions Recorded Confirmed Levothyroxine [Synthroid] 88 mcg PO DAILY 08/12/13 01/05/24 lamoTRIgine [Lamictal Xr] 200 mg PO HS 09/06/16 01/05/24 Cetirizine [ZyrTEC] 10 mg ORAL DAILY 04/06/23 01/05/24 Fluoxetine HCl [Prozac] 20 mg ORAL DAILY PM 04/06/23 01/05/24 Gabapentin [Neurontin] 300 mg ORAL TID 04/06/23 01/05/24 diazePAM [Diazepam] 4 mg ORAL DAILY 04/06/23 01/05/24 Diazepam [Valium] 7 mg PO DAILY PM 06/06/23 01/05/24 Naltrexone HCl 50 mg PO DAILY 11/18/23 01/05/24 Omeprazole 20 mg PO DAILY 11/18/23 01/05/24 Ziprasidone [Geodon] 40 mg ORAL DAILY 11/18/23 01/05/24 Ziprasidone [Geodon] 60 mg ORAL DAILY PM 11/18/23 01/05/24 Drospir/Eth Estra/Levomefol Ca 1 each PO DAILY 12/07/23 01/05/24 [Beyaz 28 Tablet] Ondansetron Odt [Zofran Odt] 4 mg TL Q6H PRN #10 tablet 01/23/24 - Allergies Allergies/Adverse Reactions: Allergies Allergy/AdvReac Type Severity Reaction Status Date / Time metformin Allergy Unknown Verified 01/23/24 15:33 hydrocodone bitartrate * AdvReac Intermediate Hallucinati Verified 01/23/24 15:33 [From Vicodin] ons topiramate [From Topamax] AdvReac Unknown Verified 01/23/24 15:33 - Social History Does the pt smoke?: No Smoking Status: Never smoker Does the pt drink ETOH?: No Does the pt have substance abuse?: No - Immunizations Immunizations are current?: No Immunizations: TDAP >10years/unknown - POLST Patient has POLST: No PD ED PE NORMAL - Vitals Vital signs reviewed: Yes - General General: Alert and oriented X 3, No acute distress, Well developed/nourished, Other (Morbidly obese) - HEENT HEENT: Atraumatic, PERRL - Cardiac Cardiac: RRR - Respiratory Respiratory: No respiratory distress - Abdomen Abdomen: Normal bowel sounds - Back Back: No CVA TTP - Derm Derm: Normal color, Warm and dry, No rash - Neuro Neuro: Alert and oriented X 3, 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 Relevant findings are: Rate: Rate (enter#) (75) Rhythm: NSR [place]: Normal Intervals: Normal [place] QRS: Normal Ischemia: Normal ST segments Computer interpretation: Agree with computer - Labs Labs: Laboratory Tests 01/23/24 01/23/24 01/23/24 15:49 15:49 16:03 WBC 7.1 RBC 4.19 L Hgb 13.3 Hct 39.0 MCV 93.1 MCH 31.7 H MCHC 34.1 RDW 12.5 Plt Count 219 MPV 9.6 Neut # (Auto) 4.4 Lymph # (Auto) 1.8 [place] # (Auto) 0.7 Eos # (Auto) 0.2 Baso # (Auto) 0.1 Absolute Nucleated RBC 0.00 Nucleated RBC % 0.0 Sodium 137 Potassium 4.0 Chloride 102 Carbon Dioxide 30 Anion Gap 5.0 L BUN 13 Creatinine 0.9 Estimated GFR (MDRD) 70 L Glucose 91 Calcium 9.3 Total Bilirubin 0.4 AST 19 ALT 30 Alkaline Phosphatase 55 Troponin I High Sens < 2.3 L Total Protein 6.0 L Albumin 3.9 Globulin 2.1 Albumin/Globulin Ratio 1.9 Lipase 28 Urine HCG, Qual NEGATIVE PD Medical Decision Making - ED course ED course: 38-year-old female presents emergency department for concerns of original syncopal episodes. After further evaluation and discussion patient did not entirely lose consciousness but she is feeling very overheated from the weather. She had no falls and no complete loss of consciousness. Patient says this is very normal for her when there is an excessive amount of heat outside and they do not have AC in the house. Labs are complete there is no electrolyte abnormalities troponin is within normal limits patient is not . She is feeling quite nauseous we gave her some oral Zofran which alleviated her symptoms and a prescription of Zofran was sent to her preferred pharmacy and she was able to tolerate adequate amount of p.o. intake prior to discharge without any nausea or vomiting. EKG does not show any sort of ACS signs or any other acute abnormalities. Patient was informed this could also be a side effect of the new medication that she has been started for her psychiatric disorders and was told to follow-up with her psychiatrist outpatient. At this point in time I am not seeing any other emergent causes or indications as to why patient is brought in. She is safe for discharge at this time return precautions given all questions answered. Departure - Departure Disposition: 01 Home, Self Care Clinical Impression: Dehydration Instructions: ED Dehydration Prescriptions: Ondansetron Odt [Zofran Odt] 4 mg TL Q6H PRN #10 tablet PRN Reason: Nausea / Vomiting Comments: Thank you trusting us with your care. We have given you some Zofran and you are able to tolerate fluids much better after this medication. I have sent a prescription of Zofran to your preferred pharmacy make sure that you go home drink plenty of fluids if you are still feeling nauseous you can take another Zofran in 6 hours from 6:00 PM. Follow-up with your psychiatrist let her know about today's ER visit to see if this could be a side effect because of medications or side effects from [place]. Wishing a speedy recovery. Forms: PCP List Discharge Date/Time: 01/23/24 18:21
[2024-01-23 17:27] LABS: HCG UR QUAL NEGATIVE
[2024-01-23] MEDS: ONDANSETRON ODT 4 MG TABLET TL STA (17:42)
[2024-01-23 17:51] VITALS: BP 112/78; O2SAT 94
[2024-01-23] MEDS: SODIUM CHLORIDE 0.9% 1,000 ML IV ONE (18:17)
== END 2024-01-23 18:21 | disposition home or self-care (01) ==
LOC: ED 15:18
DX: E86.0 Dehydration (principal); E03.9 Hypothyroidism, unspecified; F25.9 Schizoaffective disorder, unspecified; Z79.899 Other long term (current) drug therapy; E66.01 Morbid (severe) obesity due to excess calories
CPT/HCPCS: 36415; 80053; 81025; 83690; 84484; 85025; 93005; 99283; 99284; Q0162

== ENCOUNTER 2024-02-05 17:15 | Emergency (ER) | payer MEDICAID ==
--- NOTE | 2024-02-05 21:16 | ED Physician Documentation ---
History of Present Illness - Stated complaint Stated Complaint: BREAST PX - Chief complaint Chief Complaint: General - Additonal information Additional information: 38-year-old female with complex psychiatric history on multiple antipsychotic medications, hypothyroidism, tremors, previous falls, GERD Presents emergency department for left breast pain. Patient says that she is been feeling this left breast pain now for about 6 months no erythema she says her youngest child is 10 years old and has not breast-fed in this 10 years. No nausea or vomiting no fevers or chills she says occasionally she will feel a lump in her left breast region that comes and goes. Patient also says that she has very scant nipple discharge on her left breast when she is noticing exfoliation of her left nipple. 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 HEENT: Tonsil/Adenoidectomy - Present Medications Home Medications: Ambulatory Orders Medication Instructions Recorded Confirmed Levothyroxine [Synthroid] 88 mcg PO DAILY 08/12/13 01/05/24 lamoTRIgine [Lamictal Xr] 200 mg PO HS 09/06/16 01/05/24 Cetirizine [ZyrTEC] 10 mg ORAL DAILY 04/06/23 01/05/24 Fluoxetine HCl [Prozac] 20 mg ORAL DAILY PM 04/06/23 01/05/24 Gabapentin [Neurontin] 300 mg ORAL TID 04/06/23 01/05/24 diazePAM [Diazepam] 4 mg ORAL DAILY 04/06/23 01/05/24 Diazepam [Valium] 7 mg PO DAILY PM 06/06/23 01/05/24 Naltrexone HCl 50 mg PO DAILY 11/18/23 01/05/24 Omeprazole 20 mg PO DAILY 11/18/23 01/05/24 Ziprasidone [Geodon] 40 mg ORAL DAILY 11/18/23 01/05/24 Ziprasidone [Geodon] 60 mg ORAL DAILY PM 11/18/23 01/05/24 Drospir/Eth Estra/Levomefol Ca 1 each PO DAILY 12/07/23 01/05/24 [Beyaz 28 Tablet] Ondansetron Odt [Zofran Odt] 4 mg TL Q6H PRN #10 tablet 01/23/24 - Allergies Allergies/Adverse Reactions: Allergies Allergy/AdvReac Type Severity Reaction Status Date / Time metformin Allergy Unknown Verified 02/05/24 17:21 hydrocodone bitartrate * AdvReac Intermediate Hallucinati Verified 02/05/24 17:21 [From Vicodin] ons topiramate [From Topamax] AdvReac Unknown Verified 02/05/24 17:21 - Social History Does the pt smoke?: No Smoking Status: Never smoker Does the pt drink ETOH?: No Does the pt have substance abuse?: No - Immunizations Immunizations are current?: No Immunizations: TDAP >10years/unknown - POLST Patient has POLST: No PD ED PE NORMAL - Vitals Vital signs reviewed: Yes - General General: Alert and oriented X 3, No acute distress, Well developed/nourished - Respiratory Respiratory: No respiratory distress - Abdomen Abdomen: Normal bowel sounds, Soft, Non tender, No organomegaly PD ED PE EXPANDED - Derm Derm: Normal color, Other (Left breast: No erythema no induration no palpable lymph nodes no drainage to left nipple.) Results - Vitals Vitals: Vital Signs - 24 hr 02/05/24 21:41 Heart Rate 76 Respiratory 18 Rate Blood Pressure 133/88 H O2 Saturation 97 Oxygen O2 Source Room air - Rads (name of study) Left breast ultrasound Relevant Findings:: Final report received, EMP independent interpretation of test, Other (No abscess of left breast,) PD Medical Decision Making - ED course ED course: 38-year-old female presents emerged part for left breast pain. Ultrasound was complete for further evaluation she does not appear to have any abscesses or other acute findings. There is an incidental note of a normal axillary lymph node in the left axillary region but other than that normal ultrasound. She has no erythema there is no palpable induration concerning for mastitis. She is told to follow-up with her primary care provider outpatient for further investigation of this at this point in time I do not see any further emergent workup indicated as she does not appear to have any acute infection or other abnormalities on physical exam or on ultrasound. All questions answered patient safe for discharge return precautions given. Departure - Departure Disposition: 01 Home, Self Care Clinical Impression: Breast pain Instructions: Lymphedema Breast Risk, Self Exam Breast, Mammography Comments: Thank you for trusting us with your care. We have completed an ultrasound of your left breast and we are seeing some enlarged lymph nodes at this time there is no further emergent workup that is indicated I am not seeing any nipple discharge at this time but I would avoid stimulating your nipples until you are able to follow-up with your primary care provider to see if you are still noticing some nipple drainage. Please fill with your primary care provider let them know about today's ER visit and further more advanced imaging as needed come back to the ER if you notice any redness of your breast fevers or chills or any other concerning emergent symptoms. Forms: PCP List Discharge Date/Time: 02/05/24 21:42
--- NOTE | 2024-02-05 21:47 | Ultrasound Report ---
PROCEDURE: Breast Unilateral Complete INDICATIONS: L breast pain TECHNIQUE: Real-time focused scanning was performed of the left breast(s), with image documentation and color Do ppler interrogation. COMPARISON: None. FINDINGS: Multiple color and grayscale images of the left breast upper, outer quadrant were acquired over the a brissa of concern. No evidence for abscess formation. No mass. No disturbed parenchymal echotexture. Inc idental note of normal axillary lymph nodes in the region. IMPRESSION: No sonographic evidence for abscess in the left breast. Recommend clinical follow-up for persistent o r worsening symptoms. BIRADS 2, benign Reviewed by: Jessee Lira MD on 02/05/2024 9:46 PM PDT Approved by: Jessee Lira MD on 02/05/2024 9:46 PM PDT Station ID: [id number]
[2024-02-05 21:51] VITALS: BP 133/88; O2SAT 97
== END 2024-02-05 21:42 | disposition home or self-care (01) ==
LOC: ED 17:15
DX: N64.4 Mastodynia (principal); E03.9 Hypothyroidism, unspecified; F31.9 Bipolar disorder, unspecified; Z79.899 Other long term (current) drug therapy
CPT/HCPCS: 99283; 99284

== ENCOUNTER 2024-02-07 12:04 | Outpatient (CLI) | payer MEDICAID ==
[2024-02-07] MEDS ORDERED: DIATRIZOATE MEGLU/DIATRIZO SOD 30 ML BOTTLE PO ONE (12:08)
[2024-02-07] MEDS ORDERED: iohexoL-300 100 ML VIAL ONE (12:08)
[2024-02-07] MEDS: iohexoL-300 100 ML VIAL IVP ONE (15:41)
[2024-02-07] MEDS: DIATRIZOATE MEGLU/DIATRIZO SOD 30 ML BOTTLE PO ONE (15:41)
--- NOTE | 2024-02-07 16:09 | CT Report ---
PROCEDURE: Abdomen/Pelvis W INDICATIONS: EPIGASTRIC PAIN, PELVIC PAIN CONTRAST: Omni 300 100ml TECHNIQUE: After the administration of intravenous contrast, a CT scan of the abdomen and pelvis was performed. Images were recorded and evaluated at appropriate window settings. Reformats: coronal and sagittal. F or radiation dose reduction, the following was used: automated exposure control, adjustment of mA and /or kV according to patient size. COMPARISON: Pelvic ultrasound on November 13, 2023. FINDINGS: Image quality: Diagnostic. Lower chest: Unremarkable. Liver: No solid mass. Gallbladder: Cholecystectomy. Biliary tree: No intrahepatic or extrahepatic dilation, accounting for age. Spleen: No splenomegaly. Pancreas: No pancreatic ductal dilation. Adrenals: No adrenal nodule. Kidneys and ureters: No hydronephrosis. No renal cystic lesion which requires follow up. No solid mas s. Stomach, bowel and peritoneum: Stomach is decompressed, limiting evaluation, but appears grossly norm al. Small and large bowel is normal in caliber, without obstruction. Normal appendix (2/111). Lymph nodes: No central or retroperitoneal adenopathy. Vessels: No infrarenal aortic aneurysm. Patent portal vein. Mild calcification of the abdominal aorta . PELVIS Reproductive organs: The left arm of the IUD may be within the endometrium versus myometrium (4/104). Left adnexal hypodense lesion measuring 4.6 x 3.5 cm with Hounsfield unit of 43 (2/115). Bladder: No abnormal wall thickening, accounting for underdistention. Pelvic lymph nodes: No pelvic adenopathy by size criteria. Bones: No aggressive osseous abnormality. Other: No significant ventral or inguinal hernia. IMPRESSION: 1.No acute pathology in the abdomen or pelvis. Nonobstructive bowel with normal appendix. 2.Left adnexal hypodense lesion measuring 4.6 x 3.5 cm with Hounsfield unit of 43 is indeterminate. T his was not seen on prior pelvic ultrasound dated November 13, 2023. Recommend a pelvic ultrasound for f urther characterization. 3.Evaluation of the IUD is limited. The left arm at the IUD may be within the endometrium versus myom etrium. Attention on follow-up pelvic ultrasound. Reviewed by: Roni Bowen MD on 02/07/2024 4:08 PM PDT Approved by: Roni Bowen MD on 02/07/2024 4:08 PM PDT Station ID: [id number]
== END 2024-02-07 12:05 | disposition home or self-care (01) ==
LOC: DI 12:04
PROVIDERS: ATTEND Physician Assistant
DX: R10.13 Epigastric pain (principal); R10.2 Pelvic and perineal pain; R55 Syncope and collapse; K21.9 Gastro-esophageal reflux disease without esophagitis; Z97.5 Presence of (intrauterine) contraceptive device; N94.9 Unspecified condition associated with female genital organs and menstrual cycle
CPT/HCPCS: 74177; Q9963; Q9967

== ENCOUNTER 2024-02-08 07:21 | Outpatient (CLI) | payer MEDICAID ==
[2024-02-08 12:06] LABS: BASOPHILS # (AUTO) 0.1 10^3/uL (0.0-0.1); BASOPHILS % (AUTO) 1.1 %; EOSINOPHILS # (AUTO) 0.1 10^3/uL (0.0-0.7); EOSINOPHILS % (AUTO) 2.2 %; HCT - HEMATOCRIT 40.3 % (37.0-47.0); HGB - HEMOGLOBIN 13.3 g/dL (12.0-16.0); LYMPHOCYTES # (AUTO) 1.6 10^3/uL (1.5-3.5); LYMPHOCYTES % (AUTO) 25.9 %; MEAN CORPUSCULAR HEMOGLOBIN 31.3 pg (27.0-31.0); MEAN CORPUSCULAR VOLUME 94.8 fL (81.0-99.0); MEAN PLATELET VOLUME 10.8 fL (7.9-10.8); MONOCYTES # (AUTO) 0.7 10^3/uL (0.0-1.0); MONOCYTES % (AUTO) 10.6 %; NEUTROPHILS # (AUTO) 3.8 10^3/uL (1.5-6.6); NEUTROPHILS % (AUTO) 59.7 %; PLT - PLATELET COUNT 235 10^3/uL (130-450); RED BLOOD COUNT 4.25 10^6/uL (4.20-5.40); RED CELL DISTRIBUTION WIDTH 12.6 % (12.0-15.0); WHITE BLOOD COUNT 6.3 x10^3/uL (4.8-10.8)
[2024-02-08 12:34] LABS: ALBUMIN 4.3 g/dL (3.2-5.5); ALBUMIN/GLOBULIN RATIO 1.7 (1.0-2.2); BILIRUBIN,TOTAL 0.6 mg/dL (0.2-1.0); CALCIUM 9.5 mg/dL (8.5-10.3); POTASSIUM 4.1 mmol/L (3.5-4.5); TOTAL PROTEIN 6.8 g/dL (6.4-8.9)
[2024-02-08 12:35] LABS: THYROID STIMULATING HORMONE 2.21 uIU/mL (0.34-5.60)
[2024-02-08 12:38] LABS: PROLACTIN 12.65 ng/mL
[2024-02-08 12:49] LABS: ESTIMATED AVERAGE GLUCOSE 97 mg/dL (70-100)
== END 2024-02-08 07:22 | disposition home or self-care (01) ==
LOC: LAB.N 07:21
PROVIDERS: ATTEND Nurse Practitioner
DX: R73.01 Impaired fasting glucose (principal); Z79.899 Other long term (current) drug therapy; F25.1 Schizoaffective disorder, depressive type; E03.9 Hypothyroidism, unspecified
CPT/HCPCS: 36415; 80053; 83036; 84146; 84443; 85025

== ENCOUNTER 2024-02-28 08:24 | Outpatient (CLI) | payer MEDICAID ==
--- NOTE | 2024-02-29 08:01 | Mammography Report ---
BILATERAL DIGITAL DIAGNOSTIC MAMMOGRAM 3D/2D WITH SPOT COMPRESSION: 02/28/2024 CLINICAL: Baseline exam. Focal left breast pain. Nipple discharge, left breast, not bloody. Comparison is made to exam dated: 02/06/2024 ultrasound - [facility]. Both breasts are heterogeneously dense, which may obscure small masses (category c / 51-75% glandular tissue). No significant masses, calcifications, or other findings are seen in either breast. Specifically, no finding to explain the patient's diffuse lateral left breast pain. No retroareolar finding to sugge st prominent duct or reason for milky discharge. Bilateral mammograms are otherwise normal. IMPRESSION: NEGATIVE Normal bilateral mammograms. There is no abnormality seen in the left breast to correspond with the pain in the outer aspect which is consistent with hormonal stimulation. There is no abnormality seen in the left breast to correspond with the non-bloody discharge from the nipple which is consistent with physiological discharge. There is no mammographic evidence of malignancy. A 2 year screening mammogram is recommended. FIndings will be conveyed to the patient. Based on the Tyrer Cuzick model (a risk assessment model) the patient's lifetime risk is 12.9% and he r 10 year risk is 1.3%. According to the ACR, ACS, and NCCN guidelines, an annual breast MRI exam viraj ng with mammogram is recommended if the patient's lifetime risk is 20% or greater. This exam was interpreted at Station ID: [id number]. NOTE: For mammograms, a report in lay terms will be sent to the patient. Approximately 15% of breast malignancies will not be visualized mammographically. In the management of a palpable breast mass, a negative mammogram must not discourage biopsy of a clinically suspicious lesion. Electronically Signed By: Mia beltran/:02/28/2024 14:03:16 letter sent: No_Letter ACR BI-RADS Category 1: Negative 3341F PARENCHYMAL PATTERN: (D) - The breast(s) demonstrate(s) heterogeneously dense fibroglandular parenchy ma. BI-RADS CATEGORY: (1) - 1 Mammogram [id number] 2 year screening LATERALITY: (B)
== END 2024-02-28 08:25 | disposition home or self-care (01) ==
LOC: DI 08:24
PROVIDERS: ATTEND Physician Assistant
DX: N64.4 Mastodynia (principal); R92.333 Mammographic heterogeneous density, bilateral breasts

== ENCOUNTER 2024-02-28 18:22 | Outpatient (CLI) | payer MEDICAID ==
--- NOTE | 2024-02-29 13:46 | Ultrasound Report ---
PROCEDURE: Pelvic w/Transvaginal INDICATIONS: PELVIC PAIN TECHNIQUE: Real-time scanning was performed of the pelvic organs, with image documentation. Additional endovagi nal scanning was necessary due to incomplete visualization of the adnexal and endometrial structures by transabdominal scanning. COMPARISON: CT abdomen and pelvis 02/07/2024. FINDINGS: Uterus: Uterus is anteverted and normal in size at 9.0 x 4.7 x 6.0 cm. The myometrium is heterogene ous. The endometrium measures 5 mm in combined thickness. Intrauterine device in place, appears low within the mid/lower uterine segment. Arms are suboptimally visualized. Ovaries: The right ovary measures 1.8 x 1.4 x 1.5 cm, with a calculated ovarian volume of 2.1 cc. T he right ovary is not well seen. The left ovary measures 2.3 x 2.2 x 2.4 cm, with a calculated ovaria n volume of 6.3 cc. Left ovarian simple cyst measuring 2.2 cm. Other: No pathologic free abdominal or pelvic fluid. IMPRESSION: 1.Intrauterine device appears low within the mid/lower uterine segment. Arms are suboptimally seen. 2.Left ovarian simple cyst measuring 2.2 cm, statistically benign. Right ovary appears grossly normal , however not well seen. Reviewed by: Gabriel Thakur MD on 02/29/2024 1:44 PM PDT Approved by: Gabriel Thakur MD on 02/29/2024 1:44 PM PDT Station ID: [id number]
== END 2024-02-28 18:23 | disposition home or self-care (01) ==
LOC: DI 18:22
PROVIDERS: ATTEND Physician Assistant
DX: R10.2 Pelvic and perineal pain (principal); R19.09 Other intra-abdominal and pelvic swelling, mass and lump; N83.292 Other ovarian cyst, left side; Z97.5 Presence of (intrauterine) contraceptive device; N64.4 Mastodynia; R92.333 Mammographic heterogeneous density, bilateral breasts

== ENCOUNTER 2024-03-06 13:28 | Emergency (ER) | payer MEDICAID ==
[2024-03-06 13:48] VITALS: BP 141/93; O2SAT 100
[2024-03-06 14:03] LABS: BASOPHILS # (AUTO) 0.1 10^3/uL (0.0-0.1); BASOPHILS % (AUTO) 0.8 %; EOSINOPHILS # (AUTO) 0.2 10^3/uL (0.0-0.7); EOSINOPHILS % (AUTO) 2.1 %; HCT - HEMATOCRIT 41.9 % (37.0-47.0); HGB - HEMOGLOBIN 14.1 g/dL (12.0-16.0); LYMPHOCYTES # (AUTO) 2.1 10^3/uL (1.5-3.5); LYMPHOCYTES % (AUTO) 29.1 %; MEAN CORPUSCULAR HEMOGLOBIN 31.3 pg (27.0-31.0); MEAN CORPUSCULAR HGB CONC 33.7 g/dL (32.0-36.0); MEAN CORPUSCULAR VOLUME 92.9 fL (81.0-99.0); MEAN PLATELET VOLUME 9.7 fL (7.9-10.8); MONOCYTES # (AUTO) 0.8 10^3/uL (0.0-1.0); NEUTROPHILS # (AUTO) 4.1 10^3/uL (1.5-6.6); NEUTROPHILS % (AUTO) 56.6 %; PLT - PLATELET COUNT 221 10^3/uL (130-450); RED BLOOD COUNT 4.51 10^6/uL (4.20-5.40); RED CELL DISTRIBUTION WIDTH 12.2 % (12.0-15.0); WHITE BLOOD COUNT 7.2 x10^3/uL (4.8-10.8)
[2024-03-06 14:22] LABS: BILIRUBIN,URINE NEGATIVE (NEGATIVE); GLUCOSE, URINE (UA) NEGATIVE (NEGATIVE); KETONES,URINE (UA) NEGATIVE (NEGATIVE); LEUKOCYTE ESTERASE, URINE SMALL (NEGATIVE); NITRITE,URINE NEGATIVE (NEGATIVE); OCCULT BLOOD,URINE NEGATIVE (NEGATIVE); PH,URINE 6.5 PH (5.0-7.5); PROTEIN,URINE NEGATIVE (NEGATIVE); UROBILINOGEN,URINE 0.2 (NORMAL) E.U./dL (NORMAL)
[2024-03-06 14:23] LABS: CLARITY,URINE HAZY (CLEAR)
[2024-03-06 14:25] LABS: ALBUMIN 4.1 g/dL (3.2-5.5); ALBUMIN/GLOBULIN RATIO 1.5 (1.0-2.2); BILIRUBIN,TOTAL 0.3 mg/dL (0.2-1.0); CALCIUM 9.1 mg/dL (8.5-10.3); CREATININE 0.9 mg/dL (0.6-1.3); POTASSIUM 4.9 mmol/L (3.5-4.5); TOTAL PROTEIN 6.8 g/dL (6.4-8.9)
[2024-03-06 14:35] LABS: BACTERIA,URINE Few /HPF (None Seen); RBC,URINE 0-5 /HPF (0-5); SQUAMOUS EPITHELIAL CELL,UR MOD Squamous (<= Few)
--- NOTE | 2024-03-06 14:50 | ED Physician Documentation ---
PD HPI ABD PAIN - Stated complaint Stated Complaint: LOWER ABD PX - Chief complaint Chief Complaint: Abd Pain - History obtained from History obtained from: Patient - Additional information Additional information: 38 year old female presents w/ right lower pelvic pain x a month or so. It waxes and wanes and has been a little bit worse the last couple of days. The pain is low in the pelvis, and not associated with any Constipation, diarrhea, vomiting, fever. She denies any vaginal discharge, no concern for STI or . She has an IUD and has had 1 for quite some time, the current when she has is about [age]-year-old, and this was placed for heavy menstrual periods. Patient has had some imaging for this pain in the past including a CT scan last month that did not show any sign of appendicitis or other acute findings, she also had a pelvic ultrasound that that showed that the IUD was low in the pelvis, and the arms were not visible. She has not yet seen her OB leather colorer for this pain. She has been taking ibuprofen or Tylenol without relief, who instructed here to the emergency department from the clinic due to the ongoing pain. Review of Systems Constitutional: reports: Reviewed and negative Eyes: reports: Reviewed and negative Ears: reports: Reviewed and negative Nose: reports: Reviewed and negative Throat: reports: Reviewed and negative Cardiac: reports: Reviewed and negative Respiratory: reports: Reviewed and negative GI: reports: Abdominal Pain. denies: Abdominal Swelling, Nausea, Vomiting, Constipation, Diarrhea : reports: Reviewed and negative Skin: reports: Reviewed and negative Musculoskeletal: reports: Reviewed and negative Neurologic: reports: Reviewed and negative Psychiatric: reports: Reviewed and negative Endocrine: reports: Reviewed and negative Immunocompromised: reports: Reviewed and negative PD PAST MEDICAL HISTORY - Past Medical History Past Medical History: Yes Cardiovascular: None Respiratory: None Neuro: Tremors, Fainting Endocrine/Autoimmune: HyPOthyroidism GI: GERD ROUTE CLERK: None : None HEENT: None Psych: Depression, Anxiety, Bipolar disorder, Post traumatic stress disorder Musculoskeletal: None Derm: None - Past Surgical History Past Surgical History: Yes General: Cholecystectomy /ROUTE CLERK: Tubal ligation HEENT: Tonsil/Adenoidectomy - Present Medications Home Medications: Ambulatory Orders Medication Instructions Recorded Confirmed Levothyroxine [Synthroid] 88 mcg PO DAILY 08/12/13 02/07/24 lamoTRIgine [Lamictal Xr] 200 mg PO HS 09/06/16 02/07/24 Cetirizine [ZyrTEC] 10 mg ORAL DAILY 04/06/23 02/07/24 Fluoxetine HCl [Prozac] 20 mg ORAL DAILY PM 04/06/23 02/07/24 Gabapentin [Neurontin] 300 mg ORAL TID 04/06/23 02/07/24 diazePAM [Diazepam] 4 mg ORAL DAILY 04/06/23 02/07/24 Diazepam [Valium] 7 mg PO DAILY PM 06/06/23 02/07/24 Naltrexone HCl 50 mg PO DAILY 11/18/23 02/07/24 Omeprazole 20 mg PO DAILY 11/18/23 02/07/24 Ziprasidone [Geodon] 40 mg ORAL DAILY 11/18/23 02/07/24 Ziprasidone [Geodon] 60 mg ORAL DAILY PM 11/18/23 02/07/24 Drospir/Eth Estra/Levomefol Ca 1 each PO DAILY 12/07/23 02/07/24 [Beyaz 28 Tablet] Ondansetron Odt [Zofran Odt] 4 mg TL Q6H PRN #10 tablet 01/23/24 02/07/24 Acetaminophen/Cod 300/30 [Tylenol 1 each PO Q4-6H #12 tablet 03/06/24 #3] - Allergies Allergies/Adverse Reactions: Allergies Allergy/AdvReac Type Severity Reaction Status Date / Time metformin Allergy Unknown Verified 03/06/24 14:33 hydrocodone bitartrate * AdvReac Intermediate Hallucinati Verified 03/06/24 14:33 [From Vicodin] ons topiramate [From Topamax] AdvReac Unknown Verified 03/06/24 14:33 - Social History Does the pt smoke?: No Smoking Status: Never smoker Does the pt drink ETOH?: No Does the pt have substance abuse?: No - Immunizations Immunizations are current?: No Immunizations: TDAP >10years/unknown - POLST Patient has POLST: No PD ED PE NORMAL - Vitals Vital signs reviewed: Yes - General General: Alert and oriented X 3, No acute distress, Well developed/nourished - HEENT HEENT: Atraumatic, Moist mucous membranes - Cardiac Cardiac: RRR, No murmur, No gallop, No rub - Respiratory Respiratory: No respiratory distress, Clear bilaterally - Abdomen Abdomen: Normal bowel sounds, Soft, Non distended, Other (ttp low in the right pelvis, focal. no other areas of abd ttp. no distension. active bowel tones. ) Results - Vitals Vitals: Vital Signs - 24 hr 03/06/24 13:36 Temperature 36.8 C Heart Rate 85 Respiratory 16 Rate Blood Pressure 141/93 H O2 Saturation 100 Oxygen O2 Source Room air - Labs Labs: Laboratory Tests 03/06/24 03/06/24 03/06/24 13:40 13:56 13:56 WBC 7.2 RBC 4.51 Hgb 14.1 Hct 41.9 MCV 92.9 MCH 31.3 H MCHC 33.7 RDW 12.2 Plt Count 221 MPV 9.7 Neut # (Auto) 4.1 Lymph # (Auto) 2.1 [place] # (Auto) 0.8 Eos # (Auto) 0.2 Baso # (Auto) 0.1 Absolute Nucleated RBC 0.00 Nucleated RBC % 0.0 Sodium 136 Potassium 4.9 H Chloride 105 Carbon Dioxide 25 Anion Gap 6.0 BUN 10 Creatinine 0.9 Estimated GFR (MDRD) 70 L Glucose 100 Calcium 9.1 Total Bilirubin 0.3 AST 18 ALT 25 Alkaline Phosphatase 59 Total Protein 6.8 Albumin 4.1 Globulin 2.7 Albumin/Globulin Ratio 1.5 Lipase 38 Urine Color YELLOW Urine Clarity HAZY Urine pH 6.5 Ur Specific [place] 1.010 Urine Protein NEGATIVE Urine Glucose (UA) NEGATIVE Urine Ketones NEGATIVE Urine Occult Blood NEGATIVE Urine Nitrite NEGATIVE Urine Bilirubin NEGATIVE Urine Urobilinogen 0.2 (NORMAL) Ur Leukocyte Esterase SMALL H Urine RBC 0-5 Urine WBC 6-10 H Ur Squamous Epith Cells MOD Squamous H Urine Bacteria Few Ur Microscopic Review INDICATED Urine Culture Comments NOT INDICATED - Rads (name of study) No standard instances Relevant Findings:: See rad report (reviewed prior CT and pelvic US for this issue) PD Medical Decision Making - ED course Complexity details: reviewed old records, reviewed results, re-evaluated patient, considered differential, d/w patient ED course: 38-year-old female presents with right lower abdominal pain as described in HPI. Pain is been present for about a month, prior imaging reassuring, other than showing the IUD low in the pelvis, arms not visible. Today, the patient is well-appearing, nontoxic no acute distress, she has focal tenderness deep in the right lower pelvis, no other concerning physical exam findings. Labs are obtained which are reassuring including CBC, CMP, potassium slightly elevated 4.9 otherwise normal. I reviewed recent ultrasound and I am concerned that the IUD is causing her discomfort. It is low in the pelvis and arms not visible, thus potentially migranted into the myometrium. Given the duration of her pain with no significant change, I have lower concern for acute perforation today. She has postal service sectional center manager appt in 2 days and will discuss possible removal with them. She was advised that if acute worsening or new concerns, fever, vaginal bleeding, abd distension, to return to the ER. Patient encouraged to continue NSAIDs, and a have discussed additional pain medication with patient. She has done well with Tylenol 3 in the past and would like to have this to use only as needed until she follows up with her leather colorer in 2 days. Departure - Departure Disposition: Home, Self Care Clinical Impression: Abdominal pain Qualifiers: Abdominal location: right lower quadrant Qualified Code(s): R10.31 - Right lower quadrant pain Condition: Good Instructions: ED Pelvic Pain [facility] Prescriptions: Acetaminophen/Cod 300/30 [Tylenol #3] 1 each PO Q4-6H #12 tablet Comments: Please keep your follow-up with the women's health clinic on Monday. I think you should consider having your IUD removed and is it seems like the arm of the IUD may be causing you discomfort. Your labs otherwise stable, and there are no other acute findings on your ultrasound. I have prescribed short-term pain control to use as needed, start with ibuprofen but if insufficient cannot you can use the Tylenol 3. Return if you are having a fever or otherwise new concerns. I am prescribing a short course of narcotic pain medication for you. These are potentially dangerous and addictive medications that should be used carefully. These medications may constipate you. Take an [id number] stool softener (docusate) twice daily with plenty of water while taking these medications. If you go 24 hours without a bowel movement, take [id number] miralax, per package instructions. Do not drink or drive while taking these medications. If you received narcotic or sedating medications while in the emergency department, do not drive for 24 hours. Store this medication in a safe, secure place and out of reach of children. It is a violation of federal law to give or sell this medication to another person or to use in a manner other than prescribed. The ED will not refill narcotic prescriptions, including prescriptions lost or stolen. To dispose of unwanted medications: 1. [facility] provides a drop box for medication in pill form only (no liquids) 8:00 am to 4:30 p.m. Monday-Monday in the lobby of the [facility], [address] [place] [address]. Empty pills into ziplock bag before disposal. Call [phone] for information. 2.[employer] is a free service available to all [facility] residents. Go to [email or web address] Note that many narcotic pain relievers also contain Tylenol/acetaminophen. Please ensure that your total dose of acetaminophen from all sources does not exceed 3 g (3000 mg) per day. Forms: PCP List Discharge Date/Time: 03/06/24 15:09
== END 2024-03-06 15:09 | disposition home or self-care (01) ==
LOC: ED 13:28
DX: R10.31 Right lower quadrant pain (principal); Z97.5 Presence of (intrauterine) contraceptive device; E03.9 Hypothyroidism, unspecified; Z79.899 Other long term (current) drug therapy
CPT/HCPCS: 36415; 80053; 81001; 81003; 83690; 85025; 87086; 99283; 99284